=== PATIENT | female | born 2000 | race Caucasian/White ===

== ENCOUNTER 2021-08-13 09:48 | Emergency (ER) | payer OTHER, SELFPAY ==
--- NOTE | ~2021-08-13 | XR_ITS ---
EXAMINATION: XR finger 1st LT min 2V DATE: 08/13/2021 10:20 INDICATION: Left thumb injury. TECHNIQUE: 3 views of left thumb were obtained. COMPARISON: None. FINDINGS: Bone alignment is normal. No fracture. Joint spaces are well maintained. IMPRESSION: 1. No fracture. Reviewed, dictated and finalized at location B. IMPRESSION: 1. No fracture.
--- NOTE | 2021-08-13 09:57 | ED.UPPEXIN ---
HPI - Extremity Injury (Upper) General Chief Complaint: Extremity Injury, Upper Stated Complaint: Left Hand Injury Time Seen by Provider: 08/13/21 09:57 Source: patient Mode of arrival: ambulatory Limitations: no limitations History of Present Illness HPI narrative: Ms. Rivero is a 21-year-old female patient presenting to the clinic today with complaints of left thumb pain. She reports that she was kicked by a cow while milking on Friday. States that she is having pain with movement of the thumb joint. Related Data Home Medications Medication Instructions Recorded Confirmed bupropion HCl 150 mg PO QAM 08/13/21 08/13/21 buspirone 10 mg PO BID 08/13/21 08/13/21 lisdexamfetamine [Vyvanse] 50 mg PO DAILY 08/13/21 08/13/21 medroxyprogesterone 150 mg IM [id number] 08/13/21 08/13/21 Allergies Allergy/AdvReac Type Severity Reaction Status Date / Time No Known Allergies Allergy Mild Verified 08/13/21 10:08 Review of Systems Review of Systems: Pertinent positives per HPI. Patient denies any fever, chills, rash, headache, visual changes, dizziness, cough, runny nose, sore throat, shortness of breath, chest pain, palpitations, nausea, vomiting, diarrhea, constipation, abdominal pain, or any urinary issues. PMFSH Comments At the time of my signature, I reviewed and agree with the nursing past medical, surgical, social, and family history. There is no relevant family history pertinent to the patient complaint. Exam Narrative: General: Well-developed, well nourished, in no apparent distress Head: Normocephalic, atraumatic. Cardio: Regular rate and rhythm, s1 and s2 normal, no murmur appreciated. Resp: Clear to auscultation bilaterally, no rhonchi, rales, wheezing or rubs. Musculoskeletal: No deformity, tender to palpation over the saddle joint and the proximal left thumb, grossly normal range of motion, pain in the saddle joint and proximal thumb with flexion and extension of the left thumb against resistance, muscle strength strong and equal, peripheral pulse strong, no edema, no cyanosis, normal gait and station Course Course Emergency Course: Portions of this record may have been created with voice recognition software. Level of Care: Express Care Visit Vital Signs Vital signs: Vital Signs Temperature 36.7 C 08/13/21 10:02 Pulse Rate 86 08/13/21 10:02 Respiratory Rate 14 08/13/21 10:02 Blood Pressure 131/98 H 08/13/21 10:02 Pulse Oximetry 100 08/13/21 10:02 Temperature 36.7 C 08/13/21 10:09 Pulse Rate 86 08/13/21 10:09 Respiratory Rate 14 08/13/21 10:09 Blood Pressure 131/98 H 08/13/21 10:09 Pulse Oximetry 100 08/13/21 10:09 Vital signs reviewed MDM - Extremity Injury (Upper) MDM Narrative Medical decision making narrative: At the time of visit patient is resting comfortably on the exam table. Reporting that she got kicked by a cow on Friday and this injured her left thumb. X-ray was completed and is negative for any malalignment or fracture. Thumb spica splint applied. Supportive measures and discharge instructions explained to patient she voiced understanding. Differential Diagnosis Differential diagnosis: Likely finger sprain, dislocation of finger, fracture of hand and other Imaging Data Attestation: I personally reviewed and interpreted this imaging study as follows: My impression: Negative for any fracture or malalignment of the left thumb. Radiologist's impression: [facility] [address] [place], [place] [phone] XRay ReportSigned Patient: Divine RiveroB: 2000MR#: [id number]/Sex: 21 / FAcct:[id number]: EXPBETH ADM Date: 08/13/21Attending Dr: Ordering Physician: Jordan Ash APRN Date of Service: 08/13/21 Procedure(s): XR finger 1st LT min 2V Accession Number(s): [id number] cc: Jordan Ash APRN; Asmita, Zeinab Jackson MD~ EXAMINATION: XR finger 1st LT min 2V DATE: 08/13/2021 10:20 INDICATION: Le
[2021-08-13 10:02] VITALS: BP 131/98; PULSE 86; RESP 14; TEMP 36.7; O2SAT 100
[2021-08-13 10:09] VITALS: BP 131/98; PULSE 86; RESP 14; TEMP 36.7; O2SAT 100
== END 2021-08-13 11:03 | disposition home or self-care (01) ==
PROVIDERS: Emergency Provider Nurse Practitioner Family; PCP Pediatrics
DX: S63.622A Sprain of interphalangeal joint of left thumb, initial encounter (principal); W55.22XA Struck by cow, initial encounter; Y93.K2 Activity, milking an animal; F90.9 Attention-deficit hyperactivity disorder, unspecified type; F41.9 Anxiety disorder, unspecified; F32.A Depression, unspecified
CPT/HCPCS: 29125; 73140; 99213; G0463

== ENCOUNTER 2022-03-09 08:06 | Emergency (ER) | payer OTHER, SELFPAY ==
--- NOTE | 2022-03-09 08:09 | ED.URI ---
HPI - URI/Sore Throat General Chief Complaint: Upper Respiratory Infection Stated Complaint: chest hurts,hard to breath Time Seen by Provider: 03/09/22 08:13 Source: patient, RN notes reviewed and old records reviewed Mode of arrival: ambulatory Limitations: no limitations History of Present Illness HPI Narrative: 21-year-old female presents to the [facility] with complaints of shortness of breath and cough that has been going on for over 2 weeks. Denies fevers. Today at home COVID test which she reports as needed Denies any heart or lung issues. Has been taking Mucinex. reports when she coughs and Taylor she is having chest discomfort but no constant chest pain. Able to tolerate fluids by mouth: Yes Treatments prior to arrival: other ( Mucinex) Related Data Home Medications Medication Instructions Recorded Confirmed bupropion HCl 150 mg 24 hr tablet, 150 mg PO QAM 08/13/21 03/09/22 extended release buspirone 5 mg tablet 10 mg PO BID 08/13/21 03/09/22 lisdexamfetamine 50 mg capsule 50 mg PO DAILY 08/13/21 03/09/22 (Vyvanse) medroxyprogesterone 150 mg/mL 150 mg IM [id number] 08/13/21 03/09/22 intramuscular syringe Allergies Allergy/AdvReac Type Severity Reaction Status Date / Time No Known Allergies Allergy Mild Verified 03/09/22 08:17 Review of Systems Review of Systems: All systems reviewed & are unremarkable except as noted in HPI and below Constitutional: Constitutional: Reports no additional constitutional complaints, Denies chills and Denies fever(s) Eyes: Eyes: Reports no additional eye complaints ENT: Reports system reviewed and no additional complaints, except as documented Cardiovascular: Cardiovascular: Reports no additional cardiovascular complaints Respiratory: Respiratory: Reports as per HPI, Reports chest congestion, Reports cough, Reports dyspnea and Reports wheezing Gastrointestinal: Gastrointestinal: Reports no additional gastrointestinal complaints Musculoskeletal: Musculoskeletal: Reports no additional musculoskeletal complaints Integumentary/Breasts: Skin/Breast: Reports system reviewed and no additional complaints, except as docu Neurologic: Reports system reviewed and no additional complaints, except as documented Psychiatric: Psychiatric: Reports no additional psychiatric complaints Allergic/Immunologic: Allergic/Immunologic: Reports no additional allergic/immunologic complaints [facility] Past Medical History Medical History (Updated 03/09/22 @ 08:50 by Lizz Grimaldo APRN) Anxiety and depression Surgical History Surgical History (Updated 03/09/22 @ 08:50 by Lizz Grimaldo APRN) No pertinent past surgical history Social History Social History (Updated 03/09/22 @ 08:50 by Lizz Grimaldo APRN) Gender identity (if verbalized by the patient): Female Comments At the time of my signature, I reviewed and agree with the nursing past medical, surgical, social, and family history. There is no relevant family history pertinent to the patient complaint. Exam Const: General: comfortable, no acute distress, well developed, alert, ill appearing acutely ( mild) and well nourished Nutritional Appearance: well nourished Orientation/consciousness: patient oriented x3 Limitations: no limitations HENMT: Head: normal to inspection Ears: external ears normal, TM's normal bilaterally and EAC's normal Face/Nose/Sinus: Normal external nose present and Normal nares present Face and sinus: normal facial exam Mouth: Yes Normal oral and palatal mucosa present, Yes lip normal and Yes moist mucous membranes Throat: posterior oropharynx normal and uvula midline Eyes: General: appearance normal, both eyes and all related structures Conjunctivae: conjunctivae normal Pupils: Equal, round and reactive pupils present Neck: Neck: normal visual inspection, full ROM, no lymphadenopathy and no meningeal signs Chest: Chest palpation & inspection: normal inspection of the chest Resp:
[2022-03-09 08:13] VITALS: BP 121/86; PULSE 100; RESP 16; TEMP 36.6; O2SAT 100
== END 2022-03-09 08:27 | disposition home or self-care (01) ==
PROVIDERS: Emergency Provider Nurse Practitioner; PCP Pediatrics
DX: J40 Bronchitis, not specified as acute or chronic (principal); F41.9 Anxiety disorder, unspecified; F32.A Depression, unspecified
CPT/HCPCS: 99213; G0463

== ENCOUNTER 2024-08-29 13:29 | Emergency (ER) | payer OTHER, SELFPAY ==
--- NOTE | ~2024-08-29 | XR_ITS ---
EXAM: XR hip LT min 2V DATE: 08/29/2024 14:05 HISTORY: pain x 1 month/no known trauma . COMPARISON: None available. FINDINGS: Normal mineralization. No acute fracture or dislocation. Irregularity and osteophytosis at the pubic symphysis, with sclerotic ossific fragments. Partial visualization of the ischial apophysi s, at an older age than expected in a female patient No lytic or blastic lesion. Joint spaces are vadim ntained. No erosion or periosteal change. Soft tissues within normal limits. IMPRESSION: No acute fracture or dislocation in the left hip. Degenerative change/old trauma at the pubic symphysis. Persistent visualization of the ischial tuberosity apophysis, may represent normal bone development f or this patient, but also consider mild apophysitis/injury. Correlate for ischial tuberosity tenderne ss and/or hamstring or adductor-related symptoms. Reviewed, dictated and finalized at location K. IMPRESSION: No acute fracture or dislocation in the left hip. Degenerative change/old trauma at the pubic symphysis. Persistent visualization of the ischial tuberosity apophysis, may represent nor mal bone development for this patient, but also consider mild apophysitis/injur y. Correlate for ischial tuberosity tenderness and/or hamstring or adductor-rel ated symptoms.
--- NOTE | ~2024-08-29 | XR_ITS ---
EXAM: XR knee LT min 4V DATE: 08/29/2024 14:05 HISTORY: pain x 1 month/no known trauma . COMPARISON: None available. FINDINGS: Normal mineralization. No fracture or dislocation. No lytic or blastic lesion. Joint space s are maintained. No erosion or periosteal change. Soft tissues within normal limits. IMPRESSION: No acute osseous finding in the left knee. Reviewed, dictated and finalized at location K.
--- OUTSIDE RECORDS SUMMARY | 2024-08-29 13:30 | XMS_ITS | Referral Summary ---
Author Organization [facility] Medical Office Building B Address [address] [place] [address] Care Team Providers Care Metallurgical Engineering Technician Name Role Phone Meme Pinedo MD Primary Care Provider [phone]- [phone] Encounters Date Type Department Care Team Description 06/21/2024 4:45 PM SHAGGER Office Visit [facility] [place] [address] [place] [address] Teena Vincent MD Viral URI with cough (Primary Dx); Acute non-recurrent frontal sinusitis from Last 3 Months Allergies Active Allergy Reactions Criticality Noted Date Comments Lactase Diarrhea,Nausea And Vomiting High 03/01/2014 Tested positive allergy testing Peanut Swelling High 03/01/2014 Tongue tingles and throat itches, slight swelling, tested positive allergy testing Medications medroxyprogeste natasha acetate (DEPO-PROVERA IM) Inject into the muscle as instructed 8 Active buPROPion XL (WELLBUTRIN XL) 150 mg 24 hr tablet 1 Active busPIRone (BUSPAR) 10 mg tablet Take 1 tablet (10 mg total) by mouth 2 (two) times a day 2 Active EPINEPHrine 0.3 mg/0.3 mL auto-injection syringe Inject 0.3 mL (0.3 mg total) into the muscle as instructed daily as needed 4 Active Vyvanse 50 mg capsule Take by mouth daily 3 Active triamcinolone (KENALOG) 0.1 % cream APPLY TO AREAS OF RASH WHEN PRESENT BID 7 Active traZODone (DESYREL) 150 mg tablet Take 1 tablet (150 mg total) by mouth nightly at bedtime. 4 Active cyclobenzaprine (FLEXERIL) 10 mg tabletIndicatio ns:Acute pain of right shoulder Take 1 tablet (10 mg total) by mouth 3 (three) times a day as needed for muscle spasms 30 tablet 4 Active naproxen (NAPROSYN) 500 mg tablet Take 1 tablet (500 mg total) by mouth 2 (two) times a day with meals 30 tablet 4 Active Additional Information Patient not taking.Reported on 06/21/2024 ARIPiprazole (ABILIFY) 5 mg tablet daily 4 Active predniSONE (DELTASONE) 20 mg tablet Take 2 tablets (40 mg) by mouth daily 6 tablet 5 Active Active Problems No known active problems Social History Tobacco Use Types Packs/Day Years Used Date Smoking Tobacco: Some Days Vaping Tobacco Cessation:Ready to Q uit: No; Counseling Given: Not Answered Personal Safety Answer Date Recorded Have you ever been in or are you currently in a harmful physical or emotional relationship or is someone making you feel afraid or unsafe? Denies 10/14/2023 Comments No Sex and Gender Information Value Date Recorded Sex Assigned at Not on file Legal Sex Female 7:36 PM SHAGGER Gender Identity Not on file Sexual Orientation Not on file Last Filed Vital Signs Vital Sign Reading Time Taken Comments Blood Pressure 100/62 06/21/2024 4:31 PM SHAGGER Pulse 84 06/21/2024 4:31 PM SHAGGER Temperature 36.9 C (98.4 F) 06/21/2024 4:31 PM SHAGGER Respiratory Rate 16 06/21/2024 4:31 PM SHAGGER Oxygen Saturation 98% 06/21/2024 4:31 PM SHAGGER Inhaled Oxygen Concentration - - Weight 68.5 kg (151 lb) 06/21/2024 4:31 PM SHAGGER Height 160 cm (5' 3 ) 06/21/2024 4:31 PM SHAGGER Body Mass Index 26.75 06/21/2024 4:31 PM SHAGGER Plan of Treatment Not on file Procedures Procedure Name Priority Date/Time Associated Diagnosis Comments POC INFLUENZA A/B, COVID-19 ANTIGEN Routine 06/21/2024 4:52 PM SHAGGER Viral URI with cough from Last 3 Months Results * POC Influenza A/B, COVID-19 antigen (06/21/2024 4:52 PM SHAGGER) Influenza A Ag, POC Negative Negative [facility] Influenza B Ag, POC Negative Negative [facility] COVID-19 Ag POC Presumptive Negative Presumptive Negative, Invalid [facility] Nasal 06/21/2024 4:52 PM SHAGGER us Teena Vincent MD POINT OF CARE TEST NORA GURROLA Final Result [facility] [address] [place] [address], [facility] from Last 3 Months Insurance [facility] Care Teams Metallurgical Engineering Technician Relationship Specialty Start Date End Date Meme Pinedo MD PCP - General Family Medicine 08/04/23
--- OUTSIDE RECORDS SUMMARY | 2024-08-29 13:30 | XMS_ITS | Encounter Summary ---
Author Organization [facility] Address [address] [place] [address] Phone Care Team Providers Care Haunted History Tour Guide Name Role Phone Meme Pinedo MD Primary Care Provider [phone] [phone] Bindu Del Rosario APRN, [facility] Unavailable [phone]- [phone] Encounter Details Date Type Department Care Team (Late st Contact Info) Description 09/26/2023 Behavioral [facility] [address] [place] [address] Whit Marie, CLIP RIVETER [address] [place] [address] Social History Tobacco Use Types Packs/Day Years Used Date Smoking Tobacco: Never Smokeless Tobacco: Never Alcohol Use Standard Drinks/Week Comments No 0 (1 standard drink = 0.6 oz pur e alcohol) PHQ-2 Answer Date Recorded Total Score - Questions 1-9 0 08/27 Education Answer Date Recorded What is the highest level of school you have completed or the highest degree you have received? Some college, no degree 09/18/2022 Sexually Active Control Partners Comments Yes Male Comments Unknown Sex and Gender Information Value Date Recorded Sex Assigned at Not on file Legal Sex Female 12:25 AM CDT Gender Identity Not on file Sexual Orientation Not on file documented as of this encounter Plan of Treatment Not on file documented as of this encounter Goals Goal Patient Goal Type Associated Problems Recent Progress Patient-Stated? Author to be happy Behavioral Health Improving( 9:14 AM CDT) Yes Whit Marie LCSW Note: Goal/Objective: Increase ability to handle stressors. Anticipated Time Frame for Goal Completion: 8 months Goal Reviewed with: patient today Readiness to change: Thinking about making a change Department associated with goal: [facility] Steps to achieve goal: will attend counseling/psychotherapy sessions at least once monthly, at least 6 sessions, utilizing individual and/or group sessions to express thoughts and feelings. to identify, verbalize and process at least three contributing factors/triggers to anxiety and depression. to identify and verbalize at least three actions/skills to prevent and/or cope with anxiety and depression. to put into action, at least one time weekly, for one month, an action/skill to prevent and or cope with anxiety and depression. documented as of this encounter Visit Diagnoses Not on filedocumented in this encounter Additional Health Concerns Assessment Noted Time PHQ-9 Depression Total Score: 0 09/19/19 23 1:00 PM CDT documented as of this encounter Care Teams Haunted History Tour Guide Relationship Specialty Start Date End Date Meme Pinedo MD [address] [place] [address] PCP - General Family Medicine 09/18/22 10/13/23 Bindu Del Rosario APRN, [employer] [address] [place] [address] Nurse Practitioner Advanced Practice Nurse 05/02/22 documented as of this encounter
--- OUTSIDE RECORDS SUMMARY | 2024-08-29 13:30 | XMS_ITS | Clinical Summary ---
Author Organization [facility] Medical Office Building B Address [address] [place] [address] Care Team Providers Care Script Editor Name Role Phone Meme Pinedo MD Primary Care Provider [phone]- [phone] Allergies Active Allergy Reactions Criticality Noted Date [...] Active Active Problems No known active problems Encounters Date Type Department Care Team Description 06/21/2024 4:45 PM ALARM INSTALLATION TECHNICIAN Office Visit [facility] Medical [facility] [place] [address] [place] [address] Teena Vincent MD Viral URI with cough (Primary Dx); Acute non-recurrent frontal sinusitis from Last 3 Months Medical History Medical History Date Comments Anxiety Brain concussion Depression Family History Medical History Relation Name Comments Alcohol abuse Paternal Grandmother Ciarra Relation Name Status Comments Paternal Grandmother Ciarra Social History Tobacco Use Types Packs/Day Years [...] on file Legal Sex Female 7:36 PM ALARM INSTALLATION TECHNICIAN Gender Identity Not on file Sexual Orientation Not on file Obstetrics History Last Filed Vital Signs Vital Sign Reading Time Taken Comments Blood Pressure 100/62 06/21/2024 4:31 PM ALARM INSTALLATION TECHNICIAN Pulse 84 06/21/2024 4:31 PM ALARM INSTALLATION TECHNICIAN Temperature 36.9 C (98.4 F) 06/21/2024 4:31 PM ALARM INSTALLATION TECHNICIAN Respiratory Rate 16 06/21/2024 4:31 PM ALARM INSTALLATION TECHNICIAN Oxygen Saturation 98% 06/21/2024 4:31 PM ALARM INSTALLATION TECHNICIAN Inhaled Oxygen Concentration - - Weight 68.5 kg (151 lb) 06/21/2024 4:31 PM ALARM INSTALLATION TECHNICIAN Height 160 cm (5' 3 ) 06/21/2024 4:31 PM ALARM INSTALLATION TECHNICIAN Body Mass Index 26.75 06/21/2024 4:31 PM ALARM INSTALLATION TECHNICIAN Plan of Treatment Health Maintenance Due Date Last Done Comments Cervical Cancer Screening 2001 Chlamydia and Gonorrhea (GC/ CT) Screening 2001 Depression Screening 2001 Hepatitis C Screening 2001 Pneumococcal vaccine <65 (1 of 1 - PPSV23) 2007 11/08/2002, 2001 Regular Well Visit/Exam 18-64 2019 DTaP/Tdap/Td Vaccine (7 - Td or Tdap) 12/31/2022 12/31/2012, 12/12/2006, 12/10/2004, Additional history exists Covid-19 Vaccine (2023-2 5 season) 2023 03/02/2021, 07/03/2020 Influenza Vaccine (Season Ended) 2024 02/12/2022, 02/27/2021, 02/09/2020, Additional history exists Hepatitis B Screening Completed 11/08/2002 , 08/24/2002, 2001, Additional history exists Varicella Vaccines Completed 12/12/2006, 08/24/2002 HPV Vaccines Completed 09/09/2017, 12/27, 01/12/2016 Meningococcal B Vaccine Completed 03/01/2022, 02/08 Procedures Procedure Name Priority Date/Time Associated Diagnosis Comments POC INFLUENZA A/B, COVID-19 ANTIGEN Routine 06/21/2024 4:52 PM ALARM INSTALLATION TECHNICIAN Viral URI with cough from Last 3 Months Results * POC Influenza A/B, COVID-19 antigen (06/21/2024 4:52 PM ALARM INSTALLATION TECHNICIAN) Influenza A Ag, POC Negative Negative [facility] Influenza B Ag, POC Negative Negative [facility] COVID-19 Ag POC Presumptive Negative Presumptive Negative, Invalid [facility] Nasal 06/21/2024 4:52 PM ALARM INSTALLATION TECHNICIAN us Teena Vincent MD POINT OF CARE TEST ORDEusebio GURROLA Final Result [facility] [address] [place] [address], [facility] from Last 3 Months Insurance [facility] Care Teams Script Editor Relationship Specialty Start Date End Date Meme Pinedo MD PCP - General Family Medicine 08/04/23
--- OUTSIDE RECORDS SUMMARY | 2024-08-29 13:30 | XMS_ITS | Encounter Summary ---
Author Organization [facility] Address [address] [place] [address] Phone Care Team Providers Care Security Orderly Name Role Phone Meme Pinedo MD Primary Care Provider [phone] [phone] Bindu Del Rosario APRN, [facility] Unavailable [phone]- [phone] Encounter Details Date Type Department Care Team (Late st Contact Info) Description 07/18/2023 Behavioral Health [facility] [address] [place] [address] Whit Marie, EMERGENCY MEDICINE [address] [place] [address] Social History Tobacco Use Types Packs/Day Years [...] making a change Department associated with goal: [facility] Steps to achieve goal: [...] documented as of this encounter Care Teams Security Orderly Relationship Specialty Start Date End Date Meme Pinedo MD [address] [place] [address] PCP - General Family Medicine 09/18/22 10/13/23 Bindu Del Rosario APRN, SASH FINISHER [address] [place] [address] Nurse Practitioner Advanced Practice Nurse 05/02/22 documented as of this encounter
--- OUTSIDE RECORDS SUMMARY | 2024-08-29 13:30 | XMS_ITS | Encounter Summary ---
Author Organization [facility] Address [address] [place] [address] Phone Care Team Providers Care Manager Safe Name Role Phone Meme Pinedo MD Primary Care Provider [phone] [phone] Bindu Del Rosario APRN, [employer] [place] Unavailable [phone]- [phone] Encounter Details Date Type Department Care Team (Late st Contact Info) Description 02/27/2023 Behavioral Health Patient Survey [facility] Services [address] [place] [address] Whit Marie, ELECTRIC POWER LINE EXAMINER [address] [place] [address] Social History Tobacco Use Types Packs/Day Years [...] on file Sexual Orientation Not on file COVID-19 Exposure Response Date Recorded In the last 10 days, have yo u been in contact with someone who was confirmed or suspected to have Coronavirus/COVID-19? No / Unsure 02/27/2023 1:12 PM CDT documented as of this encounter Plan of [...] making a change Department associated with goal: [facility] Steps to [...] documented as of this encounter Care Teams Manager Safe Relationship Specialty Start Date End Date Meme Pinedo MD [address] [place] [address] PCP - General Family Medicine 09/18/22 10/13/23 Bindu Del Rosario APRN, TAILER [place] [address] [place] [address] Nurse Practitioner Advanced Practice Nurse 05/02/22 documented as of this encounter
--- OUTSIDE RECORDS SUMMARY | 2024-08-29 13:30 | XMS_ITS ---
Author Organization Unknown Medications Medication Instructions Effective Dates (start - stop) Status buspirone hydrochloride 10 M G Oral Tablet - Completed naproxen 500 MG Oral Tablet [id number] :00:00Z - Completed buspirone hydrochloride 10 M G Oral Tablet - Completed buspirone hydrochloride 10 M G Oral Tablet - Completed lisdexamfetamine dimesylate 50 MG Oral Capsule [Vyvanse] - Completed {21 (methylprednisolone 4 MG Oral Tablet) } Pack - Completed naproxen 500 MG Oral Tablet [id number] :00:00Z - Completed - - Compl eted trazodone hydrochloride 150 MG Oral Tablet - Completed {21 (methylprednisolone 4 MG Oral Tablet) } Pack - Completed trazodone hydrochloride 50 M G Oral Tablet - Completed - - Compl eted aripiprazole 5 MG Oral Tablet 2023-08-26 00:00:00Z - Completed 24 HR bupropion hydrochlorid e 300 MG Extended Release Oral Tablet - Compl eted - - Compl eted lisdexamfetamine dimesylate 50 MG Oral Capsule [Vyvanse] - Completed lisdexamfetamine dimesylate 50 MG Oral Capsule [Vyvanse] - Completed lisdexamfetamine dimesylate 50 MG Oral Capsule [Vyvanse] - Completed trazodone hydrochloride 150 MG Oral Tablet - Completed cyclobenzaprine hydrochlorid e 10 MG Oral Tablet - Completed naproxen 500 MG Oral Tablet [id number] :00:00Z - Completed lisdexamfetamine dimesylate 50 MG Oral Capsule [Vyvanse] - Completed buspirone hydrochloride 10 M G Oral Tablet - Completed trazodone hydrochloride 150 MG Oral Tablet - Completed trazodone hydrochloride 150 MG Oral Tablet - Completed lisdexamfetamine dimesylate 50 MG Oral Capsule [Vyvanse] - Completed lisdexamfetamine dimesylate 50 MG Oral Capsule [Vyvanse] - Completed 24 HR bupropion hydrochlorid e 300 MG Extended Release Oral Tablet - Compl eted sucralfate 1000 MG Oral Tablet 2022-11-26:00:00Z - Completed lisdexamfetamine dimesylate 50 MG Oral Capsule [Vyvanse] - Completed trazodone hydrochloride 150 MG Oral Tablet - Completed Patient Care team information Name Category Status Period Participants - - Proposed period not known -
--- OUTSIDE RECORDS SUMMARY | 2024-08-29 13:30 | XMS_ITS | Clinical Summary ---
Author Organization [facility] Address [address] [place] [address] Phone Care Team Providers Care Channel Marketing Coordinator Name Role Phone Bindu Del Rosario Ashley AGUILARN, BUSINESS DEVELOPMENT ASSISTANT Unavailable [phone] Allergies Active Allergy Reactions Criticality Noted Date Comments Lactase Diarrhea,Vomiting High 03/01/2014 Tested positive allergy testing Tested positive allergy testing Peanut Allergen Powder-Dnfp Anaphylaxis High 05/29/2022 Medications MedroxyPROGESTERo ne Acetate (DEPO-PROVERA IM) by Intramuscular route. Active EPINEPHrine (EPIPEN) 0.3 MG/0.3ML Solution Prefilled Syringe by Intramuscular route once. Active busPIRone (BUSPAR) 10 MG Tablet Take 1 Tablet by mouth 2 times daily. 180 Tablet 10/17/19 Active Additional Information Patient taking differently:10 mg Oral3 TIMES DAILY, 10mg in the am; 20mg in the pm, Reported on 11/25/2022 buPROPion (WELLBUTRIN) 150 MG XL tablet Take 1 Tablet by mouth every morning. 90 Tablet 1 10/17/19 23 Active Additional Information Patient taking differently: 300 mgOral EVERY MORNING, Reported on 11/25/2022 pantoprazole (PROTONIX) 40 MG Tablet Delayed Response Take 1 Tablet by mouth in the morning and at bedtime. 30 Tablet 11/29/19 Active Vyvanse 50 MG CapsuleIndication s:Attention deficit hyperactivity disorder (ADHD), unspecified ADHD type Take 1 Capsule by mouth daily. 30 Capsule 12/27/19 Active Active Problems Problem Noted Date Diagnosed Date Mood disorder 07/31/2023 BMI 31.0-31.9,adult 10/16/2022 Panic disorder without agoraphobia 03/10/2017 Attention deficit hyperactiv ity disorder (ADHD), inattentive type, moderate 03/10/2017 Immunizations Immunization Administration Dates Next Due DTAP VACCINE 12/12/2006, 3,08/24/2002,09/11 DTAP VACCINE, UNSPECIFIED FORMULATION 12/10/2004 HEP B/HIB Combined Vaccine 11/08/2002,08/24/2002 ,2001 Hepatitis A Vaccine 12/31/2012 Hepatitis A, Pediatric, Unsp ecified Formulation 12/12/2006 Hepatitis B Vaccine, Pediatric/adolescent 2001 Human Papillomavirus (HPV) 9 -valent Vaccine 09/09/2017,01/14/2017,01/12/2016 Inactivated Polio Vaccine 12/12/2006,11/08/2002, 08/24/2002 Influenza Vaccine Quadrivalent Nasal 02/15/2014, 12/31/2012 Influenza Vaccine, Quadrivalent, PF 01/26,02/27/2021,02/09/2020,03/11,01/14/2017 Influenza, Injectable, Quadrivalent 01/12/2016 MMR Vaccine 12/12/2006,08/24/2002 Meningococcal Group B OMV 03/01/2022,02/09/2020 Meningococcal MCV4O 09/09/2017,12/31/2012 OPV 2001 Pneumococcal Vaccine Peds - 7 Valent 11/08/2002, 2001 TDAP Vaccine 12/31/2012 Varicella Vaccine Live 12/12/2006,08/24/2002 Family History Medical History Relation Name Comments No Known Problems Brother 1 Cory Depression Brother 2 Joaquin ADD / ADHD Father Breezy Drug Abuse Father Breezy ADD / ADHD Mother Kathia Bipolar Disorder Mother Kathia Relation Name Status Comments Brother 1 Cory Alive Brother 2 Joaquin Alive Father Breezy Alive Mother Kathia Alive Social History Tobacco Use Types Packs/Day Years Used Date Smoking Tobacco: Never Smokeless Tobacco: Never Tobacco Cessation:Counseling Given: Yes Alcohol Use Standard Drinks/Week Comments No 0 [...] Sign Reading Time Taken Comments Blood Pressure 110/64 11/25/2022 3:04 PM CDT Pulse 88 11/25/2022 3:04 PM CDT Temperature 36.3 C (97.3 F) 11/25/2022 3:04 PM CDT Respiratory Rate 14 11/25/2022 3:04 PM CDT Oxygen Saturation 98% 11/25/2022 3:04 PM CDT Inhaled Oxygen Concentration - - Weight 80.1 kg (176 lb 9.6 oz) 11/25/2022 3:04 P M CDT Height 160 cm (5' 3 ) 11/25/2022 3:04 PM CDT Body Mass Index 31.28 11/25/2022 3:04 PM CDT Plan of Treatment Health Maintenance Due Date Last Done Comments Hepatitis C Virus (HCV) Screening 2001 Pap Smear 2022 DTaP/Tdap/Td Immunization (7 - Td or Tdap) 12/31/2022 12/31/2012, 12/12/2006, 12/10/2004, Additional history exists Influenza Immunization (#1) 12/28/202301/26, 02/27/2021, 02/09/2020, Additional history exists SARS-COV-2 Immunization ( season) 2023 03/02/2021, 07/03/2020 Respiratory Syncytial Virus (RSV) Immunization (Adult) (1 - 1-dose 75+ series) 2076 Hepatitis B Immunization Completed 003, 08/24/2002, 2001, Additional history exists Pneumococcal Immunization Combined Aged Out 11/08/2002, 2001 No longer eligibl e based on patient's age to complete this topic Measles Mumps Rubella (MMR) Immunization Discontinued 12/12/2006, 08/24/2002 Polio (IPV) Immunization Discontinued 007, 11/08/2002, 08/24/2002, Additional history exists Varicella Immunization Discontinued 12/12/2006, 2002 Hepatitis A Immunization Discontinued 12/31/2012, 11/26 Human Papillomavirus (HPV) Immunization Completed 09/09/2017, 01/14/2017, 01/12/2016 Meningococcal Immunization (ACWY) Completed 09/09/2017, 12/31/2012 Meningococcal B Immunization Completed 03/01/2022, 02/09/2020 Rotavirus Immunization Aged Out No lo nger eligible based on patient's age to complete this topic Goals Goal Patient Goal Type Associated Problems Recent Progress Patient-Stated? Author to be happy Behavioral Health Improving( 9:14 AM CDT) Yes Whit Marie, SALES CORRESPONDENT Note: Goal/Objective: Increase ability to handle stressors. Anticipated Time Frame for Goal Completion: 8 months Goal Reviewed with: patient today Readiness to change: Thinking about making a change Department associated with goal: [facility] Steps to [...] and or cope with anxiety and depression. Insurance [facility] O[facility] Care Teams Channel Marketing Coordinator Relationship Specialty Start Date End Date Bindu Del Rosario, SOLAR TECH, BUSINESS DEVELOPMENT ASSISTANT #[address] [facility] Nurse Practitioner Advanced Practice Nurse 05/02/22
--- OUTSIDE RECORDS SUMMARY | 2024-08-29 13:30 | XMS_ITS | Encounter Summary ---
Author Organization [facility] Address [address] [place] [address] Care Team Providers Care Seal Delivery Vehicle Officer Name Role Phone Zeinab Tian MD Primary Care Provider [phone] Mimi Palomo MD Primary Care Provider [phone] Reason for Visit * Reason Onset Date Comments MEDICATION REFILL 06/24/2017 Encounter Details Date Type Department Care Team (Late st Contact Info) Description 06/24/2017 Refill [facility] Pediatrics - [address] [address] Nae Arteaga MD [address] [place] [id number] MEDICATION REFILL Social History Tobacco Use Types Packs/Day Years Used Date Smoking Tobacco: Never Alcohol Use Standard Drinks/Week Comments No 0 (1 standard drink = 0.6 oz pur e alcohol) Comments No Sex and Gender Information Value Date Recorded Sex Assigned at Not on file Legal Sex Female 5:41 AM EIGHT ARM OPERATOR Gender Identity Not on file Sexual Orientation Not on file documented as of this encounter Functional Status * Is person deaf or have serious hearing difficulty? Answer Date of Assessment Author No 12/03/2016 10:00 AM Vikas Gutierrez RN * Is person blind or have serious difficulty seeing? Answer Date of Assessment Author No 12/03/2016 10:00 AM Vikas Gutierrez RN * Does person have serious difficulty walking/climbing stairs? Answer Date of Assessment Author No 12/03/2016 10:00 AM Vikas Gutierrez RN * Does person have difficulty dressing/bathing? Answer Date of Assessment Author No 12/03/2016 10:00 AM Vikas Gutierrez RN * Does person have difficulty doing errands alone? Answer Date of Assessment Author Yes 12/03/2016 10:00 AM Vikas Gutierrez RN documented as of this encounter Mental Status * Does person have difficulty concentrating/remembering/making decisions? Answer Entry Date Author No 12/03/2016 10:00 AM Vikas Gutierrez RN documented in this encounter Miscellaneous Notes * Telephone Encounter - Saima Tang RN - 06/25/2017 8:12 AM EIGHT ARM OPERATOR Received refill request for protonix, last seen in November 2016 at the time of endoscopy. Will forward to Dr Arteaga. T ARM OPERATOR * Telephone Encounter - Caryl Marte - 06/24/2017 3:25 PM CST Received refill request from Christ T ARM OPERATOR documented in this encounter Plan of Treatment Not on file documented as of this encounter Visit Diagnoses Diagnosis Eosinophilic esophagitis documented in this encounter Care Teams Seal Delivery Vehicle Officer Relationship Specialty Start Date End Date Zeinab Tian MD [address] [place] [phone] PCP - General Pediatrics 01/26/13 08/19/17 Mimi Palomo MD [address] [place] [address] PCP - General 08/20/17 documented as of this encounter
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
--- OUTSIDE RECORDS SUMMARY | 2024-08-29 13:31 | XMS_ITS | Encounter Summary ---
Author Organization [facility] Address [address] [place] [address] Phone Care Team Providers Care Clinical Technician Name Role Phone Meme Pinedo MD Primary Care Provider [phone] Bindu Del Rosario APRN, [facility] Unavailable [phone] Encounter Details Date Type Department Care Team (Late st Contact Info) Description 08/21/2023 Behavioral Health [facility] [address] [place] [address] Whit Marie, SALESPERSON [employer] [address] [place] [address] Social History Tobacco Use Types Packs/Day Years [...] making a change Department associated with goal: [facility] Steps to achieve goal: [...] documented as of this encounter Care Teams Clinical Technician Relationship Specialty Start Date End Date Meme Pinedo MD [address] [place] [address] PCP - General Family Medicine 09/18/22 10/13/23 Bindu Del Rosario APRN, CUSTOMS GUARD [address] [place] [address] Nurse Practitioner Advanced Practice Nurse 05/02/22 documented as of this encounter
--- NOTE | 2024-08-29 13:32 | ED_ITS ---
HPI - General Adult General Chief complaint: Extremity Problem,Nontraumatic Stated complaint: Lt Leg Pain Time Seen by Provider: 08/29/24 13:32 Source: patient Mode of arrival: ambulatory Limitations: no limitations History of Present Illness HPI narrative: 24-year-old female patient presents to the [facility] with complaints of left thigh pain for the last month. Patient denies any specific injury that she is aware of. Patient states that the pain is getting worse for the last week. Patient has been taking ibuprofen for the pain. Patient states she continues to ambulate but has been getting more difficult. Related Data Home Medications ?Medication ?Instructions ?Recorded ?Confirmed ?Last Taken ?Type bupropion HCl 150 mg 24 hr tablet, 150 mg PO QAM 08/13/21 08/29/24 Unknown History extended release buspirone 5 mg tablet 10 mg PO BID 08/13/21 08/29/24 Unknown History lisdexamfetamine 50 mg capsule 50 mg PO DAILY 08/13/21 08/29/24 Unknown History (Vyvanse) trazodone 150 mg tablet mg 08/29/24 Unknown History Allergies Allergy/AdvReac Type Severity Reaction Status Date / Time No Known Allergies Allergy Mild Verified 08/29/24 13:31 Review of Systems Review of Systems: CONSTITUTIONAL: Denies fever, chills, or sweats. EYES: Denies visual changes, redness, or discharge. ENT: Denies rhinorrhea, congestion, sore throat, or otalgia. CARDIOVASCULAR: Denies chest pain, palpitations, or edema. RESPIRATORY: Denies cough or dyspnea. GASTROINTESTINAL: Denies abdominal pain, nausea, vomiting, or diarrhea. GENITOURINARY: Denies dysuria or hematuria. SKIN: Denies rash or itching. MUSCULOSKELETAL: Denies back pain, joint pain, or myalgia. Positive left thigh pain x1 month NEUROLOGIC: Denies headache, numbness, or weakness. PSYCHIATRIC: Denies anxiety or depression. [facility] Past Medical History Medical History Anxiety and depression Surgical History Surgical History No pertinent past surgical history Social History Social History Gender identity (if verbalized by the patient): Female Comments At the time of my signature I agree with nursing past medical history, surgical, social, and family history. There is no relevant family history pertinent to the presenting complaint. Exam Narrative: GENERAL: Well-appearing, well-nourished, and in no acute distress. HEAD: Normocephalic, atraumatic. EYES: PERRLA and EOMI. ENT: Nares clear, no rhinorrhea or epistaxis. Mucous membranes moist. NECK: Supple. No lymphadenopathy CHEST: Clear to auscultation. No respiratory distress. HEART: Regular rate and rhythm. No murmur heard. Normal peripheral pulses. ABDOMEN: Soft, nontender, nondistended, normal active bowel sounds. EXTREMITIES: Patient is able to bear weight and ambulate with pain. No surface trauma, STS, or obvious effusion. No overlying erythema or warmth. The L knee is without obvious asymmetry or deformity when compared to the R knee. Patient is able to do deep knee bend with symmetry, fully extend knee but complains of pain to the thigh area, normal internal and external rotation. No tenderness to palpation of the patella, no effusion or ballottement. No tenderness over the infrapatellar tendon. tenderness over the PCL and LCL. no tenderness over the proximal fibular head. no tenderness, fullness, or mass of the popliteal fossa. No quadriceps tenderness. No laxity of the ACL, PCL, MCL, or LCL. No collateral ligament laxity to valgus or vargus stress. Negative edward/drawer sign. Negative [place]. Negative Apley compression and/or distraction. Distal motor and neurovascular status intact. Patient is able to ambulate to treatment area without difficulty or assistance, pain, slight limp noted. No surface trauma, ecchymosis. no erythema, warmth. No deformity or crepitus or obvious asymmetry of the affected leg compared to the other. No tenderness to palpation over symphysis pubis, ischial bone,iliac crest, trochanter, SI notch, buttocks, quadriceps, femoral triangle, inguinal ligament. No inguinal lymphadenopathy. ROM unlimited and without pain. Normal flexion to chest, extension, abduction and adduction. Distal motor and neurovascular status are intact. SKIN: Warm, dry, no rash. NEURO: No focal deficits. Alert and oriented x3. Course Course Level of Care: Express Care Visit Vital Signs Vital signs: Vital Signs Temperature 36.6 C 08/29/24 13:36 Pulse Rate 85 08/29/24 13:36 Respiratory Rate 18 08/29/24 13:36 Blood Pressure 117/72 08/29/24 13:36 Pulse Oximetry 100 08/29/24 13:36 Oxygen Delivery Room Air 08/29/24 13:36 Temperature 36.6 C 08/29/24 13:36 Pulse Rate 85 08/29/24 13:36 Respiratory Rate 18 08/29/24 13:36 Blood Pressure 117/72 08/29/24 13:36 Pulse Oximetry 100 08/29/24 13:36 Oxygen Delivery Room Air 08/29/24 13:36 Vital signs reviewed. Medical Decision Making MDM Narrative Medical decision making narrative: discussed with patient that we can go ahead and do an x-ray of the left hip and left knee to ensure that there is no issues with the bone however this is most likely muscular or could be related to any tendon or ligaments. Discussed with her that most likely she will need to follow-up with her primary care provider and be referred for physical therapy and further evaluation. Patient verbalized understanding of this denies any other questions or concerns at this time. Differential Diagnosis Differential Diagnosis: Differential diagnosis: Knee contusion, sprain, ligament injury, patellar dis location, joint dislocation, patella or tibial plateau fracture, Tellez's cyst, DVT, meniscus tear, PCL tear, prepatellar bursitis, septic joint, gout, tumor. Children: Oiya-Ryjlu-Qrwiquf or [place]-Schlatter disease. Posterior hip pain, joint dysfunction, lumbar radiculopathy, impingement, fracture, hip dislocation, osteoarthritis, bursitis. Vital Signs Vital Signs: Vital Signs Temperature 36.6 C 08/29/24 13:36 Pulse Rate 08/29/24 13:36 Respiratory Rate 18 08/29/24 13:36 Blood Pressure 117/72 08/29/24 13:36 Pulse Oximetry 08/29/24 13:36 Oxygen Delivery Room Air 08/29/24 13:36 Temperature 36.6 C 08/29/24 13:36 Pulse Rate 85 08/29/24 13:36 Respiratory Rate 18 08/29/24 13:36 Blood Pressure 117/72 08/29/24 13:36 Pulse Oximetry 08/29/24 13:36 Oxygen Delivery Room Air 08/29/24 13:36 Imaging Data Radiologist's impression: [facility] [address] [place] [address] XRay Report Signed Patient: Cheo Rivero : 2000 MR#: [id number] Age: 24 Acct:[id number] Loc: [facility] ADM Date: 08/29/24Attending Dr: Ordering Physician: Ana Tinoco APRN Date of Service: 08/29/24 Procedure(s): XR hip LT min 2V Accession Number(s): [id number] cc: TELEPHONE INFORMATION SUPERVISOR PHYSICIAN; Ana Tinoco HISTORY TUTOR~ EXAM: XR hip LT min 2V DATE: 08/29/2024 14:05 HISTORY: pain x 1 month/no known trauma . COMPARISON: None available. FINDINGS: Normal mineralization. No acute fracture or dislocation. Irregularity and osteophytosis at the pubic symphysis, with sclerotic ossific fragments. Partial visualization of the ischial apophysis, at an older age than expected in a female patient No lytic or blastic lesion. Joint spaces are maintained. No erosion or periosteal change. Soft tissues within normal limits. IMPRESSION: No acute fracture or dislocation in the left hip. Degenerative change/old trauma at the pubic symphysis. Persistent visualization of the ischial tuberosity apophysis, may represent normal bone development for this patient, but also consider mild apophysitis/injury. Correlate for ischial tuberosity tenderness and/or hamstring or adductor-related symptoms. Reviewed, dictated and finalized at location [facility]. [facility] [address] [place] [id number] XRay Report Signed Patient: Cheo Rivero : 2000 MR#: [id number] Age: 24 Acct:[id number] Loc: [facility] ADM Date: 08/29/24Attending Dr: Ordering Physician: Ana Tinoco APRN Date of Service: 08/29/24 Procedure(s): XR knee LT min 4V Accession Number(s): [id number] cc: TELEPHONE INFORMATION SUPERVISOR PHYSICIAN; Ana Tinoco HISTORY TUTOR~ EXAM: XR knee LT min 4V DATE: 08/29/2024 14:05 HISTORY: pain x 1 month/no known trauma . COMPARISON: None available. FINDINGS: Normal mineralization. No fracture or dislocation. No lytic or blastic lesion. Joint spaces are maintained. No erosion or periosteal change. Soft tissues within normal limits. IMPRESSION: No acute osseous finding in the left knee. Reviewed, dictated and finalized at [facility]. Critical Care Time Critical Care Time Critical Care Time: No Discharge Plan Discharge Clinical Impression: Acute pain of left lower extremity, Arthralgia of left thigh Patient Disposition: Home Condition: Stable Instructions: Antibiotic Form, Hip Pain (ED) Additional Instructions: Ice to the area 20-30 minutes 4-6 times a day Elevate above heart Elastic wrap or orthopedic splint as directed for comfort for the next 5-7 days Tylenol for lesser pain Ibuprofen regularly for the next 2-3 days for the inflammation Follow up with your primary care provider if the condition is not improving within 1 week or sooner if the Condition worsens with numbness, tingling, decrease sensation with weakness to seek ER. Patient Language: Panamanian Prescriptions: No Action buspirone 5 mg Tablet 10 mg PO BID bupropion HCl 150 mg Tablet Extended Release 24 Hr 150 mg PO QAM lisdexamfetamine [Vyvanse] 50 mg Capsule 50 mg PO DAILY trazodone 150 mg tablet Follow-up/Referrals: UNKNOWN,DOCTOR [Non-Staff] - Time of Disposition: 14:51
--- OUTSIDE RECORDS SUMMARY | 2024-08-29 13:33 | XMS_ITS ---
Author Organization Unknown Medications Medication Instructions Effective Dates (start - stop) Status buspirone hydrochloride 10 M G Oral Tablet - Completed naproxen 500 MG Oral Tablet [id number] :00:00Z - Completed buspirone hydrochloride 10 M G Oral Tablet - Completed buspirone hydrochloride 10 M G Oral Tablet - Completed lisdexamfetamine dimesylate 50 MG Oral Capsule [Vyvanse] - Completed {21 (methylprednisolone 4 MG Oral Tablet) } Pack - Completed naproxen 500 MG Oral Tablet [id number] :00:00Z - Completed - - Compl eted [...] - Completed naproxen 500 MG Oral Tablet [id number] :00:00Z - Completed lisdexamfetamine dimesylate 50 MG [...]
[2024-08-29 13:36] VITALS: BP 117/72; PULSE 85; RESP 18; TEMP 36.6; O2SAT 100
== END 2024-08-29 14:52 | disposition home or self-care (01) ==
PROVIDERS: Emergency Provider Nurse Practitioner Family
DX: M79.662 Pain in left lower leg (principal); M79.652 Pain in left thigh; F41.9 Anxiety disorder, unspecified; F32.A Depression, unspecified
CPT/HCPCS: 73502; 73564; 99214; G0463

== ENCOUNTER 2024-10-27 14:23 | Emergency (ER) | payer OTHER, SELFPAY ==
--- OUTSIDE RECORDS SUMMARY | 2024-10-27 14:32 | XMS_ITS | Referral Summary ---
Author Organization [facility] Address [address] [place] [address] Care Team Providers Care Returned Goods Repairer Name Role Phone Meme Pinedo MD Primary Care Provider [phone] Allergies Active Allergy Reactions Criticality Noted Date [...] on file Legal Sex Female 7:36 PM CLOTH DESIGNER Gender Identity Not on file Sexual Orientation Not on file Last Filed Vital Signs Vital Sign Reading Time Taken Comments Blood Pressure 100/62 06/21/2024 4:31 PM CLOTH DESIGNER Pulse 84 06/21/2024 4:31 PM CLOTH DESIGNER Temperature 36.9 C (98.4 F) 06/21/2024 4:31 PM CLOTH DESIGNER Respiratory Rate 16 06/21/2024 4:31 PM CLOTH DESIGNER Oxygen Saturation 98% 06/21/2024 4:31 PM CLOTH DESIGNER Inhaled Oxygen Concentration - - Weight 68.5 kg (151 lb) 06/21/2024 4:31 PM CLOTH DESIGNER Height 160 cm (5' 3) 06/21/2024 4:31 PM CLOTH DESIGNER Body Mass Index 26.75 06/21/2024 4:31 PM CLOTH DESIGNER Plan of Treatment Not on file Insurance [facility] Care Teams Returned Goods Repairer Relationship Specialty Start Date End Date Meme Pinedo MD PCP - General Family Medicine 08/04/23
--- OUTSIDE RECORDS SUMMARY | 2024-10-27 14:32 | XMS_ITS | Clinical Summary ---
Author Organization [facility] Address [address] [place] [address] Care Team Providers Care Occupational Analyst Name Role Phone Meme Pinedo MD Primary Care Provider [phone] Allergies Active Allergy Reactions Criticality Noted Date [...] Active Active Problems No known active problems Medical History Medical History Date Comments Anxiety [...] on file Legal Sex Female 7:36 PM GARMENT FORM ASSEMBLER Gender Identity Not on file Sexual Orientation Not on file Obstetrics History Last Filed Vital Signs Vital Sign Reading Time Taken Comments Blood Pressure 100/62 06/21/2024 4:31 PM GARMENT FORM ASSEMBLER Pulse 84 06/21/2024 4:31 PM GARMENT FORM ASSEMBLER Temperature 36.9 C (98.4 F) 06/21/2024 4:31 PM GARMENT FORM ASSEMBLER Respiratory Rate 16 06/21/2024 4:31 PM GARMENT FORM ASSEMBLER Oxygen Saturation 98% 06/21/2024 4:31 PM GARMENT FORM ASSEMBLER Inhaled Oxygen Concentration - - Weight 68.5 kg (151 lb) 06/21/2024 4:31 PM GARMENT FORM ASSEMBLER Height 160 cm (5' 3) 06/21/2024 4:31 PM GARMENT FORM ASSEMBLER Body Mass Index 26.75 06/21/2024 4:31 PM GARMENT FORM ASSEMBLER Plan of Treatment Health Maintenance Due Date Last Done Comments Cervical Cancer Screening 2001 Chlamydia and Gonorrhea (GC/ CT) Screening 2001 Depression Screening 2001 Hepatitis C Screening 2001 Pneumococcal vaccine <65 (1 of 1 - PPSV23) 2007 11/08/2002, 2001 Regular Well Visit/Exam 18-64 2019 DTaP/Tdap/Td Vaccine (7 - Td or Tdap) 12/31/2022 12/31/2012, 12/12/2006, 12/10/2004, Additional history exists Covid-19 Vaccine (3 - 2023-2 5 season) 2023 03/02/2021, 07/03/2020 Influenza Vaccine (Season Ended) 2024 02/12/2022, 02/27/2021, 02/09/2020, Additional history exists Hepatitis B Screening Completed 11/08/2002 , 08/24/2002, 2001, Additional history exists Varicella Vaccines Completed 12/12/2006, 08/24/2002 HPV Vaccines Completed 09/09/2017, 12/27, 01/12/2016 Meningococcal B Vaccine Completed 03/01/2022, 02/08 Insurance [facility] Care Teams Occupational Analyst Relationship Specialty Start Date End Date Meme Pinedo MD PCP - General Family Medicine 08/04/23
--- OUTSIDE RECORDS SUMMARY | 2024-10-27 14:33 | XMS_ITS ---
Author Organization Unknown Medications Medication Instructions Effective Dates (start - stop) Status buspirone hydrochloride 10 M G Oral Tablet - Completed naproxen 500 MG Oral Tablet [id number] :00:00Z - Completed buspirone hydrochloride 10 M G Oral Tablet - Completed buspirone hydrochloride 10 M G Oral Tablet - Completed lisdexamfetamine dimesylate 50 MG Oral Capsule [Vyvanse] - Completed {21 (methylprednisolone 4 MG Oral Tablet) } Pack - Completed naproxen 500 MG Oral Tablet [id number] :00:00Z - Completed - - Compl eted [...] - Completed naproxen 500 MG Oral Tablet [id number] :00:00Z - Completed lisdexamfetamine dimesylate 50 MG [...]
--- OUTSIDE RECORDS SUMMARY | 2024-10-27 14:33 | XMS_ITS | Encounter Summary ---
Author Organization [facility] Address [address] [place] [address] Care Team Providers Care Geosciences Professor Name Role Phone Zeinab Tian MD Primary Care Provider Mimi Palomo MD Primary Care Provider [phone] Reason for Visit * Reason Onset Date Comments MEDICATION REFILL 06/24/2017 Encounter Details Date Type Department Care Team (Late st Contact Info) Description 06/24/2017 Refill [facility] [place] [address] Nae Arteaga MD [address] [place] [id number] MEDICATION REFILL Social History Tobacco Use Types Packs/Day Years Used Date Smoking Tobacco: Never Alcohol Use Standard Drinks/Week Comments No 0 (1 standard drink = 0.6 oz pur e alcohol) Comments No Sex and Gender Information Value Date Recorded Sex Assigned at Not on file Legal Sex Female 5:41 AM FUNERAL DIRECTOR/EMBALMER Gender Identity Not on file Sexual Orientation [...] Saima Tang RN - 06/25/2017 8:12 AM FUNERAL DIRECTOR/EMBALMER Received refill request for protonix, last seen in November 2016 at the time of endoscopy. Will forward to Dr Arteaga. RAL DIRECTOR/EMBALMER * Telephone Encounter - Caryl Marte - 06/24/2017 3:25 PM CST Received refill request from Christ RAL DIRECTOR/EMBALMER documented in this encounter Plan of Treatment Not on file documented as of this encounter Visit Diagnoses Diagnosis Eosinophilic esophagitis documented in this encounter Care Teams Geosciences Professor Relationship Specialty Start Date End Date Zeinab Tian MD [address] [id number] PCP - General Pediatrics 01/26/13 08/19/17 Mimi Palomo MD [address] [place] [address] PCP - General 08/20/17 documented as of this encounter
--- OUTSIDE RECORDS SUMMARY | 2024-10-27 14:33 | XMS_ITS ---
Author Organization Unknown Medications Medication Instructions Effective Dates (start - stop) Status buspirone hydrochloride 10 M G Oral Tablet - Completed naproxen 500 MG Oral Tablet [id number] :00:00Z - Completed buspirone hydrochloride 10 M G Oral Tablet - Completed buspirone hydrochloride 10 M G Oral Tablet - Completed lisdexamfetamine dimesylate 50 MG Oral Capsule [Vyvanse] - Completed {21 (methylprednisolone 4 MG Oral Tablet) } Pack - Completed naproxen 500 MG Oral Tablet [id number] :00:00Z - Completed - - Compl eted [...] - Completed naproxen 500 MG Oral Tablet [id number] :00:00Z - Completed lisdexamfetamine dimesylate 50 MG [...]
--- OUTSIDE RECORDS SUMMARY | 2024-10-27 14:33 | XMS_ITS | Encounter Summary ---
Author Organization [facility] Address [address] [place] [address] Phone Care Team Providers Care Assistant Manager/Embalmer Name Role Phone Meme Pinedo MD Primary Care Provider [phone] Bindu Del Rosario APRN, [facility] Unavailable + [phone] Provider, None Primary Care Provider Unavailabl e Encounter Details Date Type Department Care Team (Late Contact Info) Description 09/26/2023 Behavioral Health Patient Survey [facility] [address] [place] [address] Whit Marie, [facility] [address] [place] [address] Social History Tobacco Use Types Packs/Day Years [...] as of this encounter Plan of Treatment Upcoming Encounters Date Type Department Care Team (Late Contact Info) Description 04/14/2025 9:15 AM POWDER SHOVELER Office Visit [facility] [place] [address] [place] [address] Ronald Dobbs MD [address] [facility] [address] [address] documented as of this encounter Goals Goal Patient Goal Type Associated Problems Recent Progress Patient-Stated? Author to be happy Behavioral Health Improving( 9:14 AM CDT) Yes Whit Marie, SAMPLE TESTER GRINDER Note: Goal/Objective: Increase ability to handle stressors. Anticipated Time Frame for Goal Completion: 8 months Goal Reviewed with: patient today Readiness to change: Thinking about making a change Department associated with goal: [facility] Steps to [...] documented as of this encounter Care Teams Assistant Manager/Embalmer Relationship Specialty Start Date End Date Meme Pinedo MD [address] [place] [address] PCP - General Family Medicine 09/18/22 10/13/23 Provider, None [place] PCP - General 09/07/24 Bindu Del Rosario, CONTINUITY PERSON, [facility] [address] [place] [address] Nurse Practitioner Advanced Practice Nurse 05/02/22 documented as of this encounter
--- OUTSIDE RECORDS SUMMARY | 2024-10-27 14:33 | XMS_ITS | Clinical Summary ---
Author Organization [facility] Address [address] [place] [address] Phone Care Team Providers Care Dewatering Filtering Supervisor Name Role Phone CirilorajniBindu APRN, BUSINESS RELATIONSHIP MANAGER Unavailable [phone]- [phone] Provider, None Primary Care Provider Unavailabl e Allergies Active Allergy Reactions Criticality Noted Date Comments Lactase Diarrhea,Vomiting High 03/01/2014 Tested positive allergy testing Tested positive allergy testing Peanut Allergen Powder-Dnfp Anaphylaxis High 05/29/2022 Medications MedroxyPROGESTERo ne Acetate (DEPO-PROVERA IM) by Intramuscular route. Active EPINEPHrine (EPIPEN) 0.3 MG/0.3ML Solution Prefilled Syringe by Intramuscular route once. Active pantoprazole (PROTONIX) 40 MG Tablet Delayed Response Take 1 Tablet by mouth in the morning and at bedtime. 30 Tablet 11/29/19 23 Active Vyvanse 50 MG CapsuleIndication s:Attention deficit hyperactivity disorder (ADHD), unspecified ADHD type Take 1 Capsule by mouth daily. 30 Capsule 12/27/19 23 Active methylPREDNISolon e (MEDROL DOSPACK) 4 MG Tablet Therapy PackIndications:L eft hip pain Use as per instructions on package. 1 Tablet 09/08/19 25 Active buPROPion (WELLBUTRIN) 150 MG XL tabletIndications :Attention deficit hyperactivity disorder (ADHD), unspecified ADHD type Take 1 Tablet by mouth every morning. 90 Tablet 1 10/08/19 25 Active busPIRone (BUSPAR) 10 MG TabletIndications :Attention deficit hyperactivity disorder (ADHD), unspecified ADHD type Take 1 Tablet by mouth 2 times daily. 180 Tablet 10/08/19 25 Active busPIRone (BUSPAR) 10 MG Tablet Take 1 Tablet by mouth 2 times daily. 180 Tablet 10/17/19 23 025 Discontin ued(Reord er) buPROPion (WELLBUTRIN) 150 MG XL tablet Take 1 Tablet by mouth every morning. 90 Tablet 1 10/17/19 23 025 Discontin ued(Reord er) Active Problems Problem Noted Date Diagnosed Date Mood disorder 07/31/2023 BMI 31.0-31.9,adult 10/16/2022 Panic disorder without agoraphobia 03/10/2017 Attention deficit hyperactiv ity disorder (ADHD), inattentive type, moderate 03/10/2017 Encounters Date Type Department Care Team Description 10/11/2024 Telephone [facility] [address] [place] [address] Ronald Dobbs MD 10/07/2024 9:30 AM CDT Office Visit [facility] [address] [place] [address] Ronald Dobbs MD Left hip pain (Primary Dx); Attention deficit hyperactivity disorder (ADHD), unspecified ADHD type; Encounter for immunization; Encounter for long-term (current) use of medications Discharge Disposition: Discharged to home or Selfcare 10/07/2024 Travel 09/07/2024 7:45 AM CDT Office Visit [facility] [address] [place] [address] Ronald Dobbs MD Left hip pain (Primary Dx) Discharge Disposition: Discharged to home or Selfcare 09/07/2024 Travel from Last 3 Months Immunizations Immunization Administration Dates Next Due DTAP [...] - 7 Valent 11/08/2002, 2001 TDAP Vaccine 10/07/2024,12/31/2012 Varicella Vaccine Live 12/12/2006,08/24/2002 Family History Medical [...] Never Smokeless Tobacco: Never Tobacco Cessation:Counseling Given: No Alcohol Use Standard Drinks/Week Comments No 0 (1 standard drink = 0.6 oz pur e alcohol) PHQ-2 Answer Date Recorded Total Score - Questions 1-9 0 08/26 Education Answer Date Recorded What is the highest level of school you have completed or the highest degree you have received? Some college, no degree 09/18/2022 Sexually Active Control Partners Comments Yes Male Comments No Sex and Gender Information Value Date Recorded Sex Assigned at Not on file Legal Sex Female 12:25 AM CDT Gender Identity Not on file Sexual Orientation Not on file Last Filed Vital Signs Vital Sign Reading Time Taken Comments Blood Pressure 96/62 10/07/2024 9:17 AM CDT Pulse 79 10/07/2024 9:17 AM CDT Temperature 36.2 C (97.1 F) 10/07/2024 9:17 AM CDT Respiratory Rate 16 10/07/2024 9:17 AM CDT Oxygen Saturation 98% 10/07/2024 9:17 AM CDT Inhaled Oxygen Concentration - - Weight 74.9 kg (165 lb 3.2 oz) 10/07/2024 9:17 A M CDT Height 160 cm (5' 3) 10/07/2024 9:17 AM CDT Body Mass Index 29.26 10/07/2024 9:17 AM CDT Plan of Treatment Upcoming Encounters Date Type Department Care Team (Late st Contact Info) Description 04/14/2025 9:15 AM WELL TENDER [facility] [address] [place] [address] Ronald Dobbs MD [address] [address] Health Maintenance Due Date Last Done Comments Hepatitis C Virus (HCV) Screening 2001 Pap Smear 2022 SARS-COV-2 Immunization ( season) 2023 03/02/2021, 07/03/2020 Influenza Immunization (Season Ended) 2024 02/12/2022, 02/27/2021, 02/09/2020, Additional history exists DTaP/Tdap/Td Immunization (8 - Td or Tdap) 10/07/2034 10/07/2024, 12/31/2012, 12/12/2006, Additional history exists Respiratory Syncytial Virus (RSV) Immunization (Adult) (1 [...] Improving( 9:14 AM CDT) Yes Whit Marie, WELL LOGGING OPERATOR MUD ANALYSIS Note: Goal/Objective: Increase ability to handle stressors. Anticipated Time Frame for Goal Completion: 8 months Goal Reviewed with: patient today Readiness to change: Thinking about making a change Department associated with goal: [facility] Steps to achieve [...] and or cope with anxiety and depression. Procedures Procedure Name Priority Date/Time Associated Diagnosis Comments UR TOXICOLOGY SCREEN 10/07/2024 12:00 AM CDT from Last 3 Months Results * UR TOXICOLOGY SCREEN (10/07/2024 12:00 AM CDT) 10/07/2024 Ronald Dobbs MD URINE ORDERABLES Final Result SCAN from Last 3 Months Insurance [facility] Care Teams Dewatering Filtering Supervisor Relationship Specialty Start Date End Date Provider, None [place] PCP - General 09/07/24 Bindu Del Rosario, ANGIOGRAPHY TECHNOLOGIST, BUSINESS RELATIONSHIP MANAGER [address] [place] [address] Nurse Practitioner Advanced Practice Nurse 05/02/22
--- OUTSIDE RECORDS SUMMARY | 2024-10-27 14:33 | XMS_ITS | Clinical Summary ---
Author Organization [facility] Address [address] [place] [address] Care Team Providers Care Web Content Developer Name Role Phone Mimi Palomo MD Primary Care Provider [phone] Source Comments [facility],non-owned Affiliates and Associated Physician Practices is amultiple site organization consisting of ambulatory clinics and hospital sitesin [place], [place], [place] and [place]. This disclosure is being madepursuant to the Care Everywhere program and may not contain all information available regarding this patient. Last updated 18.[facility] Allergies Active Allergy Reactions Criticality Noted Date [...] head CT (Jun 18, 2017) at [facility] in [place], [place] during evaluation of head injury following [...] nodule Assessment & Plan (07/02/2017 11:11 AM STEEL CHIPPER): Incidental, ~ 1 cm, left sided, solid/cystic [...] on file Legal Sex Female 5:41 AM STEEL CHIPPER Gender Identity Not on file Sexual Orientation Not on file Last Filed Vital Signs Vital Sign Reading Time Taken Comments Blood Pressure 118/62 06/01/2019 3:54 PM STEEL CHIPPER Pulse 91 02/09/2018 12:04 PM CDT per pcp Temperature 36.7 C (98.1 F) 02/09/2018 12:04 PM CDT per pcp Respiratory Rate 20 02/09/2018 12:04 PM CDT per pcp Oxygen Saturation 100% 02/09/2018 12:04 PM CDT per pcp Inhaled Oxygen Concentration - - Weight 72.1 kg (159 lb) 02/04/2020 12:49 PM CDT Height 158.6 cm (5' 2.44) 06/01/2019 3:54 PM CS T Body Mass Index - - Plan of Treatment Health Maintenance Due Date Last Done Comments HIV SCREENING 2016 HPV VACCINE (1 - 3-dose series) 2016 MENINGOCOCCAL (Group B) VACCINE SHARED DECISION-MAKING (1 of 2 - Standard) 2017 HEPATITIS C SCREENING 05/29/2019 DTAP/TDAP/TD VACCINES (1 - Tdap) 2020 HEPATITIS B VACCINE (1 of 3 - 19+ 3-dose series) 2020 PAP SMEAR 2022 CHLAMYDIA/GONORRHEA SCREENING 09/11/2023 09/10/2022 COVID-19 VACCINE ( season) 2023 03/02/2021, 07/03/2020 [...] patient's age to complete this topic Insurance [facility] Member Subscriber Plan / Payer (Ef fective for All Dates) Name:Orly Gutierres Relation to Subscriber:Self Name:ORLY GUTIERRES Payer ID:Not on file Group ID:Not on file Type:Medicaid [place] Address: [address] [id number] MEDICAID - OUT OF STATE MEDICAID [employer] [facility] [place] MEDICAID - OUT OF STATE MEDICAID - OUT OF [facility] MEDICAID - OUT OF [facility] [employer]NA MEDICAID - OUT OF STATE [employer]NA MEDICAID - OUT OF STATE [employer] MEDICAID - OUT OF STATE [employer] MEDICAID - OUT OF STATE [employer] MEDICAID - OUT OF STATE [employer] MEDICAID - OUT OF [facility] [employer]NA MEDICAID - OUT OF STATE HU[employer]NA [employer] MEDICAID - OUT OF STATE HU[employer]NA MEDICAID - OUT OF STATE [employer] MEDICAID - OUT OF STATE Care Teams Web Content Developer Relationship Specialty Start Date End Date Mimi Palomo MD [address] [place] [address] PCP - General 08/20/17
--- OUTSIDE RECORDS SUMMARY | 2024-10-27 14:33 | XMS_ITS | Encounter Summary ---
Author Organization [facility] Address [address] [place] [address] Phone Care Team Providers Care Review Appraiser Name Role Phone Meme Pinedo MD Primary Care Provider [phone] Bindu Del Rosario APRN, FRONT DESK ADMIN Unavailable [phone]- [phone] Provider, None Primary Care Provider Unavailabl e Encounter Details Date Type Department Care Team (Late st Contact Info) Description 02/27/2023 Behavioral Health Patient Survey [facility] [address] [place] [address] Whit Marie, [facility] [address] [place] [address] Social History Tobacco Use Types Packs/Day Years [...] st Contact Info) Description 04/14/2025 9:15 AM BLOCK BOLTER MULE OPERATOR Office Visit [facility] [address] [place] [address] Ronald Dobbs MD [address] [address] documented as of this encounter Goals Goal Patient Goal Type Associated Problems Recent Progress Patient-Stated? Author to be happy Behavioral Health Improving( 9:14 AM CDT) Yes Whit Marie, MOP MAN Note: Goal/Objective: Increase ability to handle stressors. Anticipated Time Frame for Goal Completion: 8 months Goal Reviewed with: patient today Readiness to change: Thinking about making a change Department associated with goal: [facility] Steps to [...] documented as of this encounter Care Teams Review Appraiser Relationship Specialty Start Date End Date Meme Pinedo MD [address] [place] [address] PCP - General Family Medicine 09/18/22 10/13/23 Provider, None [place] PCP - General 09/07/24 Bindu Del Rosario, WORKFORCE DEVELOPMENT PROGRAM DIRECTOR, FRONT DESK ADMIN [address] [place] [address] Nurse Practitioner Advanced Practice Nurse 05/02/22 documented as of this encounter
--- OUTSIDE RECORDS SUMMARY | 2024-10-27 14:33 | XMS_ITS | Encounter Summary ---
Author Organization [facility] Address [address] [place] [address] Phone Care Team Providers Care Pulp Beater Name Role Phone Meme Pinedo MD Primary Care Provider [phone] Bindu Del Rosario APRN, [facility] Unavailable + [phone] Provider, None Primary Care Provider Unavailabl e Encounter Details Date Type Department Care Team (Late Contact Info) Description 08/21/2023 Behavioral Health Patient Survey [facility] [address] [place] [address] Whit Marie, [facility] [address] [place] [address] Social History Tobacco Use Types Packs/Day Years [...] (Late Contact Info) Description 04/14/2025 9:15 AM COOK CHEF Office Visit [facility] [address] Ronald Dobbs MD [address]2 [facility] [address] [address] documented as of this encounter Goals Goal Patient Goal Type Associated Problems Recent Progress Patient-Stated? Author to be happy Behavioral Health Improving( 9:14 AM CDT) Yes Whit Marie, VEGETABLE CANNER Note: Goal/Objective: Increase ability to handle stressors. Anticipated Time Frame for Goal Completion: 8 months Goal Reviewed with: patient today Readiness to change: Thinking about making a change Department associated with goal: [facility] Steps to achieve [...] documented as of this encounter Care Teams Pulp Beater Relationship Specialty Start Date End Date Meme Pinedo MD [address] [facility] [place] [address] PCP - General Family Medicine 09/18/22 10/13/23 Provider, None [place] PCP - General 09/07/24 Bindu Del Rosario, PUBLIC HEALTH REGISTRAR, RIBBON LAP MACHINE TENDER [address] [place] [address] Nurse Practitioner Advanced Practice Nurse 05/02/22 documented as of this encounter
--- OUTSIDE RECORDS SUMMARY | 2024-10-27 14:33 | XMS_ITS | Encounter Summary ---
Author Organization [facility] Address [address] [place] [address] Phone Care Team Providers Care Sanitation Worker Cleaning Equipment Name Role Phone Meme Pinedo MD Primary Care Provider [phone] Bindu Del Rosario APRN, [facility] Unavailable + [phone] Provider, None Primary Care Provider Unavailabl e Encounter Details Date Type Department Care Team (Late Contact Info) Description 07/18/2023 Behavioral Health Patient Survey [facility] Behavioral Health Services [address] [place] [address] Whit Marie, [facility] [address] [place] [address] Social History Tobacco Use Types Packs/Day Years [...] (Late Contact Info) Description 04/14/2025 9:15 AM EMPLOYMENT INSTRUCTIONAL ASSOCIATE Office Visit [facility] - [facility] [address] [facility] [place] [address] Ronald Dobbs MD [address] [address] [address] documented as of this encounter Goals Goal Patient Goal Type Associated Problems Recent Progress Patient-Stated? Author to be happy Behavioral Health Improving( 9:14 AM CDT) Yes Whit Marie, WELDER FITTER GAS Note: Goal/Objective: Increase ability to handle stressors. Anticipated Time Frame for Goal Completion: 8 months Goal Reviewed with: patient today Readiness to change: Thinking about making a change Department associated with goal: [facility] Steps to achieve goal: [...] documented as of this encounter Care Teams Sanitation Worker Cleaning Equipment Relationship Specialty Start Date End Date Meme Pinedo MD [address] [facility] [place] [address] PCP - General Family Medicine 09/18/22 10/13/23 Provider, None [place] PCP - General 09/07/24 Bindu Del Rosario, TUBE COREMAKER, ICING MIXER [address] [place] [address] Nurse Practitioner Advanced Practice Nurse 05/02/22 documented as of this encounter
[2024-10-27 14:35] VITALS: BP 105/69; PULSE 85; RESP 18; TEMP 36.3; O2SAT 99
--- NOTE | 2024-10-27 15:12 | ED.GENADULT ---
HPI - General Adult General Chief complaint: Upper Respiratory Infection Stated complaint: Flu Like / Stomach Pain History of Present Illness HPI narrative: Cheo Rivero Is a 24-year-old female who presents with complaints not feeling well for about 3-4 days. She states that she has diarrhea for 3 days, runny nose, congestion, she had nausea and vomited at work today she also states that she has had some body aches for 3-4 days off and on. She states that she had a fever a couple days ago. She states that she has been able the drink soup and he has 2 since she vomited and she has kept it down. Related Data Home Medications ?Medication ?Instructions ?Recorded ?Confirmed ?Last Taken ?Type bupropion HCl 150 mg 24 hr tablet, 150 mg PO QAM 08/13/21 10/27/24 Unknown History extended release buspirone 5 mg tablet 10 mg PO BID 08/13/21 10/27/24 Unknown History lisdexamfetamine 50 mg capsule 50 mg PO DAILY 08/13/21 10/27/24 Unknown History (Vyvanse) trazodone 150 mg tablet mg 08/29/24 Unknown History Allergies Allergy/AdvReac Type Severity Reaction Status Date / Time No Known Allergies Allergy Mild Verified 10/27/24 14:41 Review of Systems Review of Systems: All systems reviewed & are unremarkable except as noted in HPI and below PMFSH Past Medical History Medical History Anxiety and depression Surgical History Surgical History No pertinent past surgical history Social History Social History Gender identity (if verbalized by the patient): Female Exam Narrative: GENERAL: Well-appearing, well-nourished, and in no acute distress. HEAD: Normocephalic, atraumatic. EYES: PERRLA and EOMI. ENT: Nares clear, no rhinorrhea or epistaxis. Mucous membranes moist. Oropharynx without tonsillar hypertrophy exudate or other lesions. Bilateral TMs pearly saucedo non bulging NECK: Supple. No adenopathy or masses. CHEST: Clear to auscultation. No respiratory distress. No wheezes rales or rhonchi HEART: Regular rate and rhythm. No murmur heard. Normal peripheral pulses. ABDOMEN: Soft, nontender, nondistended, normal active bowel sounds. EXTREMITIES: Normal range of motion. No edema. SKIN: Warm, dry, no rash. NEURO: No focal deficits. Alert and oriented x3. PSYCH: Normal mood and affect. Course Course Level of Care: Express Care Visit Vital Signs Vital signs: Vital Signs Temperature 36.3 C L 10/27/24 14:35 Pulse Rate 85 10/27/24 14:35 Respiratory Rate 18 10/27/24 14:35 Blood Pressure 105/69 10/27/24 14:35 Pulse Oximetry 99 10/27/24 14:35 Oxygen Delivery Room Air 10/27/24 14:35 Temperature 36.3 C L 10/27/24 14:35 Pulse Rate 85 10/27/24 14:35 Respiratory Rate 18 10/27/24 14:35 Blood Pressure 105/69 10/27/24 14:35 Pulse Oximetry 99 10/27/24 14:35 Oxygen Delivery Room Air 10/27/24 14:35 Medical Decision Making MDM Narrative Medical decision making narrative: 24 y/.o with several days of symptoms most suggestive of viral syndrome with URI symptoms as well as vomiting and diarrhea. Lungs are clear bilaterally. Patient is treated symptomatically with ondansetron here. Patient tolerating oral intake. Patient is comfortable going home and discharged home in stable condition with expectant management and return precautions. Procedures: Pulse oximetry interpretation - not hypoxic. Review of medical records. Viral swab: Negative Strep: Negative Urine dip : + blood Urine preg: Negative DISPOSITION: Discharged home in stable condition. IMPRESSION: 1. Acute upper respiratory tract infection, likely viral. 2. Acute nausea, vomiting and diarrhea. 3. Acute viral syndrome. Medical Records Medical records reviewed: Yes I reviewed the external patient's medical records. Vital Signs Vital Signs: Vital Signs Temperature 36.3 C L 10/27/24 14:35 Pulse Rate 85 10/27/24 14:35 Respiratory Rate 18 10/27/24 14:35 Blood Pressure 105/69 10/27/24 14:35 Pulse Oximetry 99 10/27/24 14:35 Oxygen Delivery Room Air 10/27/24 14:35 Temperature 36.3 C L 10/27/24 14:35 Pulse Rate 85 10/27/24 14:35 Respiratory Rate 18 10/27/24 14:35 Blood Pressure 105/69 10/27/24 14:35 Pulse Oximetry 99 10/27/24 14:35 Oxygen Delivery Room Air 10/27/24 14:35 Vitals reviewed by me Lab Data Labs: Lab Results 10/27/24 10/27/24 Range/Units 15:19 15:20 POC Urine Color Yellow POC Urine Clarity Clear POC Urine pH 5.5 POC Ur Specif [place] 1.030 POC Urine Protein Negative (Negative) POC Ur Glucose (UA) Negative (Negative) POC Urine Ketones Negative (Negative) POC Urine Blood Trace (Negative) POC Urine Nitrite Negative (Negative) POC Urine Bilirubin Negative (Negative) POC Urine Urobilinogen 0.2 POC U Leukocyte Esteras Negative (Negative) POC Urine HCG, Qual Negative (Negative) POC Influenza A Ag Negative (Negative) POC Influenza B Ag Negative (Negative) POC SARS CoV-2 Ag Negative (Negative) POC Grp A Strep Screen Negative (Negative) Discharge Plan Discharge Clinical Impression: Acute viral syndrome Patient Disposition: Home Condition: Stable Instructions: Antibiotic Form Additional Instructions: you likely have a viral syndrome You may continue to take Zofran for nausea as ordered Stick to clear liquids for the next 24 hours then slowly advance to a bland diet Push hydration Continue Tylenol and Motrin for body aches You should be feeling better in the next couple days If you develop abdominal pain/ fever/ vomiting/ or unable to keep liquids down or any worsening symptoms then go to the ER Patient Language: Uzbek Prescriptions: New ondansetron 4 mg tablet,disintegrating 4 mg PO Q6H PRN (Reason: nausea and vomiting) Qty: 12 0RF ondansetron 4 mg tablet,disintegrating 4 mg PO Q6H PRN (Reason: nausea and vomiting) Qty: 12 0RF No Action buspirone 5 mg Tablet 10 mg PO BID bupropion HCl 150 mg Tablet Extended Release 24 Hr 150 mg PO QAM lisdexamfetamine [Vyvanse] 50 mg Capsule 50 mg PO DAILY trazodone 150 mg tablet Follow-up/Referrals: Dilia,Ronald Trotter MD [Primary Care Provider] - Stand Alone Forms: Work/School Release IP Time of Disposition: 15:28
[2024-10-27 15:22] LABS: EDUAAPPEAR Clear; EDUABILI Negative (Negative); EDUABLOOD Trace (Negative); EDUACOLOR1 Yellow; EDUAGLUCOSE Negative (Negative); EDUAKETONE Negative (Negative); EDUALEUKO Negative (Negative); EDUANITRATE Negative (Negative); EDUAPH 5.5; EDUAPROTEIN Negative (Negative); EDUASPGRAVITY 1.030; EDUAUROBILI 0.2
[2024-10-27 15:22] LABS: BEDSIDEPREGUCG Negative (Negative); EDCOVIDSCREEN Negative (Negative); EDINFLUASCREEN Negative (Negative); EDINFLUBSCREEN Negative (Negative); EDSTREPNEGPOS1 Negative (Negative)
== END 2024-10-27 15:30 | disposition home or self-care (01) ==
PROVIDERS: Emergency Provider Nurse Practitioner Family; PCP Internal Medicine
DX: B34.9 Viral infection, unspecified (principal); Z20.822 Contact with and (suspected) exposure to COVID-19; F41.9 Anxiety disorder, unspecified; F32.A Depression, unspecified
CPT/HCPCS: 81003; 81025; 87081; 87426; 87804; 87880; 99213; G0463

== ENCOUNTER 2024-10-31 13:23 | Emergency (ER) | payer OTHER, SELFPAY ==
--- NOTE | 2024-10-31 13:25 | ED_ITS ---
HPI - Skin/Abscess/Foreign Bdy General Chief complaint: Skin/Abscess/Foreign Body Stated complaint: skin growth Time Seen by Provider: 10/31/24 13:25 Source: patient Mode of arrival: ambulatory Limitations: no limitations History of Present Illness HPI narrative: Cheo is a 24-year-old female patient presenting to the clinic today with complaints of a itchy painful rash to the right chin. She reports she has had the sore for approximately 3 days. It is draining some yellow discharge. No fevers, chills, body aches. Works at a local [employer]. Related Data Home Medications ?Medication ?Instructions ?Recorded ?Confirmed ?Last Taken ?Type bupropion HCl 150 mg 24 hr tablet, 150 mg PO QAM 08/13/21 10/27/24 Unknown History extended release buspirone 5 mg tablet 10 mg PO BID 08/13/21 10/27/24 Unknown History lisdexamfetamine 50 mg capsule 50 mg PO DAILY 08/13/21 10/27/24 Unknown History (Vyvyeceniae) Allergies Allergy/AdvReac Type Severity Reaction Status Date / Time No Known Allergies Allergy Mild Verified 10/31/24 13:32 Review of Systems Review of Systems: Pertinent positives per HPI. Patient denies any fever, chills, rash, headache, visual changes, dizziness, cough, runny nose, sore throat, shortness of breath, chest pain, palpitations, nausea, vomiting, diarrhea, constipation, abdominal pain, or any urinary issues. PMFSH Past Medical History Medical History Anxiety and depression Surgical History Surgical History No pertinent past surgical history Social History Social History Gender identity (if verbalized by the patient): Female Comments At the time of my signature, I reviewed and agree with the nursing past medical, surgical, social, and family history. There is no relevant family history pertinent to the patient complaint. Exam Narrative: General: Well-developed, well nourished, in no apparent distress Head: Normocephalic, atraumatic. Cardio: Regular rate and rhythm, s1 and s2 normal, no murmur appreciated. Resp: Clear to auscultation bilaterally, no rhonchi, rales, wheezing or rubs. Integumentary: [place], warm, and dry, intact without lesion, red, raised, blistered, honey-crusted circular wound to the right chin consistent with impetigo Course Course Emergency Course: Portions of this record may have been created with voice recognition software. Level of Care: Express Care Visit Vital Signs Vital signs: Vital Signs Temperature 36.5 C 10/31/24 13:32 Pulse Rate 62 10/31/24 13:32 Respiratory Rate 18 10/31/24 13:32 Blood Pressure 102/62 10/31/24 13:32 Pulse Oximetry 100 10/31/24 13:32 Oxygen Delivery Room Air 10/31/24 13:32 Temperature 36.5 C 10/31/24 13:32 Pulse Rate 62 10/31/24 13:32 Respiratory Rate 18 10/31/24 13:32 Blood Pressure 102/62 10/31/24 13:32 Pulse Oximetry 100 10/31/24 13:32 Oxygen Delivery Room Air 10/31/24 13:32 Vital signs reviewed MDM - Skin/Abscess/Foreign Bdy MDM Narrative Medical decision making narrative: At the time of visit patient is resting comfortably on the exam table. Patient appears to be nontoxic. Plan: I suspect patient has impetigo. Prescription for mupirocin cream was sent to the pharmacy. Supportive measures were discussed with the patient and they voiced understanding discharge instructions and agrees to treatment plan. Return precautions reviewed Differential Diagnosis Differential diagnosis: Likely abscess of skin or subcutaneous tissue, viral exanthem, dermatophytosis, urticaria, herpes zoster, allergic reaction to drug, cellulitis, eczema, insect bites, impetigo and contact dermatitis Discharge Plan Discharge Clinical Impression: Impetigo Patient Disposition: Home Condition: Stable Instructions: Antibiotic Form, Impetigo (ED) Additional Instructions: Keep wound clean and dry Wash daily with soap and water Apply mupirocin cream to the affected area twice daily as directed May take Tylenol/Motrin as needed for pain Follow-up with your primary care doctor in 5-7 days if symptoms persist Patient Language: Tongan Prescriptions: New mupirocin [Centany] 2 % ointment 1 applic topical BID 7 Days Qty: 22 0RF No Action buspirone 5 mg Tablet 10 mg PO BID bupropion HCl 150 mg Tablet Extended Release 24 Hr 150 mg PO QAM lisdexamfetamine [Vyvanse] 50 mg Capsule 50 mg PO DAILY Follow-up/Referrals: UNKNOWN,DOCTOR [Primary Care Provider] - Stand Alone Forms: Work/School Release IP Time of Disposition: 13:35 Quality NIHSS Nursing Documentation ED NIHSS nursing documentation: reviewed/agree
--- OUTSIDE RECORDS SUMMARY | 2024-10-31 13:26 | XMS_ITS | Clinical Summary ---
Author Organization [facility] Address [address] [place] [address] Phone Care Team Providers Care Administrative Dietitian Name Role Phone CirilorajniBindu APRN, JEWELRY SETTER Unavailable [phone]- [phone] Provider, None Primary Care Provider Unavailabl e [...] Type Department Care Team Description 10/11/2024 Telephone [facility] [address] [place] [address] Ronald Dobbs MD 10/07/2024 9:30 AM CDT Office Visit [facility] [address] [place] [address] Ronald Dobbs MD Left hip pain (Primary Dx); Attention deficit hyperactivity disorder (ADHD), unspecified ADHD type; Encounter for immunization; Encounter for long-term (current) use of medications Discharge Disposition: Discharged to home or Selfcare 10/07/2024 Travel 09/07/2024 7:45 AM CDT Office Visit [facility] [address] [place] [address] Ronald Dobbs MD Left hip pain (Primary [...] st Contact Info) Description 04/14/2025 9:15 AM MANAGER TRANSIT [facility] [address] [place] [address] Ronald Dobbs MD #[address] [address] Health Maintenance Due Date Last Done Comments [...] Improving( 9:14 AM CDT) Yes Whit Marie, ORACLE APPLICATION CONSULTANT Note: Goal/Objective: Increase ability to handle stressors. Anticipated Time Frame for Goal Completion: 8 months Goal Reviewed with: patient today Readiness to change: Thinking about making a change Department associated with goal: [facility] Steps to achieve [...] Result SCAN from Last 3 Months Insurance [facility] Care Teams Administrative Dietitian Relationship Specialty Start Date End Date Provider, None [place] PCP - General 09/07/24 Bindu Del Rosario, SAMPLE HAND, JEWELRY SETTER [address] [place] [address] Nurse Practitioner Advanced Practice Nurse 05/02/22
--- OUTSIDE RECORDS SUMMARY | 2024-10-31 13:26 | XMS_ITS | Encounter Summary ---
Author Organization [facility] Address [address] [place] [address] Phone Care Team Providers Care Patient Resource Specialist Name Role Phone Meme Pinedo MD Primary Care Provider [phone] Bindu Del Rosario APRN, [facility] Unavailable + [phone] Provider, None Primary Care Provider Unavailabl e Encounter Details Date Type Department Care Team (Late Contact Info) Description 09/26/2023 Behavioral Health Patient Survey [facility] [address] [place] [address] Whit Marie, [facility] [address] [place] [address] Social History Tobacco Use Types Packs/Day Years [...] (Late Contact Info) Description 04/14/2025 9:15 AM KNUCKLE BENDER Office Visit [facility] - [facility] [place] [address]2 [place] [address] Ronald Dobbs MD [facility]2 [facility] [address] [address] documented as of this encounter Goals Goal Patient Goal Type Associated Problems Recent Progress Patient-Stated? Author to be happy Behavioral Health Improving( 9:14 AM CDT) Yes Whit Marie, COORDINATOR CARDIOPULMONARY SERVICES Note: Goal/Objective: Increase ability to handle stressors. Anticipated Time Frame for Goal Completion: 8 months Goal Reviewed with: patient today Readiness to change: Thinking about making a change Department associated with goal: [facility] Steps to [...] documented as of this encounter Care Teams Patient Resource Specialist Relationship Specialty Start Date End Date Meme Pinedo MD [address] [facility] [place] [address] PCP - General Family Medicine 09/18/22 10/13/23 Provider, None [place] PCP - General 09/07/24 Bindu Del Rosario, SUCTION DREDGE DUMPING SUPERVISOR, MARKET STALL VENDOR [address] [place] [address] Nurse Practitioner Advanced Practice Nurse 05/02/22 documented as of this encounter
--- OUTSIDE RECORDS SUMMARY | 2024-10-31 13:26 | XMS_ITS | Encounter Summary ---
Author Organization [facility] Address [address] [place] [address] Phone Care Team Providers Care Problem Manager Name Role Phone Meme Pinedo MD Primary Care Provider [phone] Bindu Del Rosario APRN, [facility] Unavailable + [phone] Provider, None Primary Care Provider Unavailabl e Encounter Details Date Type Department Care Team (Late Contact Info) Description 08/21/2023 Behavioral Health Patient Survey [facility] 1 [place] [address] Whit Marie, [facility] [address] [place] [address] Social History Tobacco Use Types Packs/Day Years [...] (Late Contact Info) Description 04/14/2025 9:15 AM YARDAGE CONTROL OPERATOR FORMING Office Visit [facility] - Family [facility] [address]2 [facility] [place] [address] Ronald Dobbs MD [facility] [facility] [address] [address] documented as of this encounter Goals Goal Patient Goal Type Associated Problems Recent Progress Patient-Stated? Author to be happy Behavioral Health Improving( 9:14 AM CDT) Yes Whit Marie, SHIRT TURNER Note: Goal/Objective: Increase ability to handle stressors. Anticipated Time Frame for Goal Completion: 8 months Goal Reviewed with: patient today Readiness to change: Thinking about making a change Department associated with goal: [facility] Steps to [...] documented as of this encounter Care Teams Problem Manager Relationship Specialty Start Date End Date Meme Pinedo MD [address] [facility] [place] [address] PCP - General Family Medicine 09/18/22 10/13/23 Provider, None [place] PCP - General 09/07/24 Bindu Del Rosario, EXERCISE EQUIPMENT SPECIALIST, MISSION MANAGER [address] [place] [address] Nurse Practitioner Advanced Practice Nurse 05/02/22 documented as of this encounter
--- OUTSIDE RECORDS SUMMARY | 2024-10-31 13:26 | XMS_ITS | Clinical Summary ---
Author Organization [facility] Address [address] [facility] [place] [address] Care Team Providers Care Insurance Account Manager Name Role Phone Mimi Palomo MD Primary Care Provider [phone] Source Comments [facility],non-owned Affiliates and Associated Physician Practices is amultiple site organization consisting of ambulatory clinics and hospital sitesin [place], [place], [place]. This disclosure is being madepursuant to the Care Everywhere program and may not contain all information available regarding this patient. Last updated 18.[facility] Allergies Active Allergy Reactions Criticality Noted Date [...] on head CT (Jun 18, 2017) at [facility] in [place], [place] during evaluation of head injury following [...] nodule Assessment & Plan (07/02/2017 11:11 AM TRAFFIC ENGINEERING TECHNICIAN): Incidental, ~ 1 cm, left sided, solid/cystic [...] on file Legal Sex Female 5:41 AM TRAFFIC ENGINEERING TECHNICIAN Gender Identity Not on file Sexual Orientation Not on file Last Filed Vital Signs Vital Sign Reading Time Taken Comments Blood Pressure 118/62 06/01/2019 3:54 PM TRAFFIC ENGINEERING TECHNICIAN Pulse 91 02/09/2018 12:04 PM CDT per [...] patient's age to complete this topic Insurance [facility] Member Subscriber Plan / Payer (Ef fective for All Dates) Name:Orly Gutierres Relation to Subscriber:Self Name:ORLY GUTIERRES Payer ID:Not on file Group ID:Not on file Type:Medicaid [place] Address: [address] [id number] MEDICAID - OUT OF STATE MEDICAID [employer] [facility] MEDICAID - OUT OF STATE MEDICAID - OUT OF [facility] MEDICAID - OUT OF [facility] HU[employer]NA MEDICAID - OUT OF STATE HU[employer]NA MEDICAID - OUT OF STATE HU[employer]NA MEDICAID - OUT OF STATE [employer] MEDICAID - OUT OF STATE [employer] MEDICAID - OUT OF STATE [employer] MEDICAID - OUT OF [facility] HU[employer]NA MEDICAID - OUT OF STATE HU[employer]NA [employer] MEDICAID - OUT OF STATE HU[employer]NA MEDICAID - OUT OF STATE [employer] MEDICAID - OUT OF STATE Care Teams Insurance Account Manager Relationship Specialty Start Date End Date Mimi Palomo MD [address] [place] [address] PCP - General 08/20/17
--- OUTSIDE RECORDS SUMMARY | 2024-10-31 13:26 | XMS_ITS | Referral Summary ---
Author Organization [facility] Medical Office Building [address] Address [address] [place] [address] Care Team Providers Care Layout Mechanic Name Role Phone Meme Pinedo MD Primary Care Provider [phone] Allergies Active Allergy Reactions Criticality Noted Date [...] on file Legal Sex Female 7:36 PM POULTICE MACHINE OPERATOR Gender Identity Not on file Sexual Orientation Not on file Last Filed Vital Signs Vital Sign Reading Time Taken Comments Blood Pressure 100/62 06/21/2024 4:31 PM POULTICE MACHINE OPERATOR Pulse 84 06/21/2024 4:31 PM POULTICE MACHINE OPERATOR Temperature 36.9 C (98.4 F) 06/21/2024 4:31 PM POULTICE MACHINE OPERATOR Respiratory Rate 16 06/21/2024 4:31 PM POULTICE MACHINE OPERATOR Oxygen Saturation 98% 06/21/2024 4:31 PM POULTICE MACHINE OPERATOR Inhaled Oxygen Concentration - - Weight 68.5 kg (151 lb) 06/21/2024 4:31 PM POULTICE MACHINE OPERATOR Height 160 cm (5' 3) 06/21/2024 4:31 PM POULTICE MACHINE OPERATOR Body Mass Index 26.75 06/21/2024 4:31 PM POULTICE MACHINE OPERATOR Plan of Treatment Not on file Insurance [facility] Care Teams Layout Mechanic Relationship Specialty Start Date End Date Meme Pinedo MD PCP - General Family Medicine 08/04/23
--- OUTSIDE RECORDS SUMMARY | 2024-10-31 13:26 | XMS_ITS | Encounter Summary ---
Author Organization [facility] Address [address] [place] [address] Care Team Providers Care Drum Drier Operator Name Role Phone Zeinab Tian MD Primary Care Provider Mimi Palomo MD Primary Care Provider [phone] Reason for Visit * Reason Onset Date Comments MEDICATION REFILL 06/24/2017 Encounter Details Date Type Department Care Team (Late st Contact Info) Description 06/24/2017 Refill [facility] - [facility] [place] [address] Nae Arteaga MD [address] [place] [address] MEDICATION REFILL Social History Tobacco Use Types Packs/Day Years Used Date Smoking Tobacco: Never Alcohol Use Standard Drinks/Week Comments No 0 (1 standard drink = 0.6 oz pur e alcohol) Comments No Sex and Gender Information Value Date Recorded Sex Assigned at Not on file Legal Sex Female 5:41 AM APPLIANCE PAINTER AND REFINISHER Gender Identity Not on file Sexual Orientation [...] Saima Tang RN - 06/25/2017 8:12 AM APPLIANCE PAINTER AND REFINISHER Received refill request for protonix, last seen in November 2016 at the time of endoscopy. Will forward to Dr Arteaga. IANCE PAINTER AND REFINISHER * Telephone Encounter - Caryl Mrate - 06/24/2017 3:25 PM CST Received refill request from [facility] IANCE PAINTER AND REFINISHER documented in this encounter Plan of Treatment Not on file documented as of this encounter Visit Diagnoses Diagnosis Eosinophilic esophagitis documented in this encounter Care Teams Drum Drier Operator Relationship Specialty Start Date End Date Zeinab Tian MD [address] [id number] PCP - General Pediatrics 01/26/13 08/19/17 Mimi Palomo MD [address] [place] [address] PCP - General 08/20/17 documented as of this encounter
--- OUTSIDE RECORDS SUMMARY | 2024-10-31 13:26 | XMS_ITS ---
Author Organization Unknown Medications Medication Instructions Effective Dates (start - stop) Status buspirone hydrochloride 10 M G Oral Tablet - Completed naproxen 500 MG Oral Tablet [id number] :00:00Z - Completed buspirone hydrochloride 10 M G Oral Tablet - Completed buspirone hydrochloride 10 M G Oral Tablet - Completed lisdexamfetamine dimesylate 50 MG Oral Capsule [Vyvanse] - Completed {21 (methylprednisolone 4 MG Oral Tablet) } Pack - Completed naproxen 500 MG Oral Tablet [id number] :00:00Z - Completed - - Compl eted [...] - Completed naproxen 500 MG Oral Tablet [id number] :00:00Z - Completed lisdexamfetamine dimesylate 50 MG [...]
--- OUTSIDE RECORDS SUMMARY | 2024-10-31 13:26 | XMS_ITS | Encounter Summary ---
Author Organization [facility] Address [address] [place] [address] Phone Care Team Providers Care Hospice Admitting Clerk Name Role Phone Meme Pinedo MD Primary Care Provider [phone] Bindu Del Rosario APRN, [facility] Unavailable + [phone] Provider, None Primary Care Provider Unavailabl e Encounter Details Date Type Department Care Team (Late Contact Info) Description 07/18/2023 Behavioral Health Patient Survey [facility] [address] [place] [address] Whit Marie, [facility] [address] [place] [address] Social History Tobacco Use Types Packs/Day Years [...] (Late Contact Info) Description 04/14/2025 9:15 AM FOUNDATION ENGINEER Office Visit [facility] Medical [facility] - Family [facility] [address]2 [place] [address] Ronald Dobbs MD #2 [facility] [address] [address] documented as of this encounter Goals Goal Patient Goal Type Associated Problems Recent Progress Patient-Stated? Author to be happy Behavioral Health Improving( 9:14 AM CDT) Yes Whit Marie, ELECTROLYSIST Note: Goal/Objective: Increase ability to handle stressors. Anticipated Time Frame for Goal Completion: 8 months Goal Reviewed with: patient today Readiness to change: Thinking about making a change Department associated with goal: [facility] Steps to achieve goal: [...] documented as of this encounter Care Teams Hospice Admitting Clerk Relationship Specialty Start Date End Date Meme Pinedo MD [address] [facility] [place] [address] PCP - General Family Medicine 09/18/22 10/13/23 Provider, None [place] PCP - General 09/07/24 Bindu Del Rosario, SHOWROOM CONSULTANT, DIPLOMA MEDICAL ASSISTANT [address] [place] [address] Nurse Practitioner Advanced Practice Nurse 05/02/22 documented as of this encounter
--- OUTSIDE RECORDS SUMMARY | 2024-10-31 13:26 | XMS_ITS | Encounter Summary ---
Author Organization [facility] Address [address] [place] [address] Phone Care Team Providers Care Production Sampler Name Role Phone Meme Pinedo MD Primary Care Provider [phone] Bindu Del Rosario APRN, CYLINDER MACHINE OPERATOR Unavailable +- [phone] Provider, None Primary Care Provider Unavailabl e Encounter Details Date Type Department Care Team (Late st Contact Info) Description 02/27/2023 Behavioral Health Patient Survey [facility] Services 1 [place] [address] Whit Marie, [facility] [address] [place] [address] Social History Tobacco Use Types Packs/Day Years [...] st Contact Info) Description 04/14/2025 9:15 AM COGNOS CONSULTANT Office Visit [facility] Medical [facility] - Family [facility] [address] [place] [address] Ronald Dobbs MD #[address] [address] documented as of this encounter Goals Goal Patient Goal Type Associated Problems Recent Progress Patient-Stated? Author to be happy Behavioral Health Improving( 9:14 AM CDT) Yes Whit Marie, TAPPER HELPER Note: Goal/Objective: Increase ability to handle stressors. Anticipated Time Frame for Goal Completion: 8 months Goal Reviewed with: patient today Readiness to change: Thinking about making a change Department associated with goal: [facility] Steps to achieve [...] documented as of this encounter Care Teams Production Sampler Relationship Specialty Start Date End Date Meme Pinedo MD [address] [place] [address] PCP - General Family Medicine 09/18/22 10/13/23 Provider, None [place] PCP - General 09/07/24 Bindu Del Rosario, CORRECTIONAL FACILITY PSYCHIATRIST, CYLINDER MACHINE OPERATOR [address] [place] [address] Nurse Practitioner Advanced Practice Nurse 05/02/22 documented as of this encounter
--- OUTSIDE RECORDS SUMMARY | 2024-10-31 13:26 | XMS_ITS | Clinical Summary ---
Author Organization [facility] Medical Office Building B Address [address] [place] [address] Care Team Providers Care Building Inspector Name Role Phone Meme Pinedo MD Primary Care Provider [phone] Allergies Active Allergy Reactions Criticality Noted Date [...] on file Legal Sex Female 7:36 PM CARRIAGE RIDER Gender Identity Not on file Sexual Orientation Not on file Obstetrics History Last Filed Vital Signs Vital Sign Reading Time Taken Comments Blood Pressure 100/62 06/21/2024 4:31 PM CARRIAGE RIDER Pulse 84 06/21/2024 4:31 PM CARRIAGE RIDER Temperature 36.9 C (98.4 F) 06/21/2024 4:31 PM CARRIAGE RIDER Respiratory Rate 16 06/21/2024 4:31 PM CARRIAGE RIDER Oxygen Saturation 98% 06/21/2024 4:31 PM CARRIAGE RIDER Inhaled Oxygen Concentration - - Weight 68.5 kg (151 lb) 06/21/2024 4:31 PM CARRIAGE RIDER Height 160 cm (5' 3) 06/21/2024 4:31 PM CARRIAGE RIDER Body Mass Index 26.75 06/21/2024 4:31 PM CARRIAGE RIDER Plan of Treatment Health Maintenance Due Date [...] B Vaccine Completed 03/01/2022, 02/08 Insurance [facility] Care Teams Building Inspector Relationship Specialty Start Date End Date Meme Pinedo MD PCP - General Family Medicine 08/04/23
--- OUTSIDE RECORDS SUMMARY | 2024-10-31 13:28 | XMS_ITS ---
Author Organization Unknown Medications Medication Instructions Effective Dates (start - stop) Status buspirone hydrochloride 10 M G Oral Tablet - Completed naproxen 500 MG Oral Tablet [id number] :00:00Z - Completed buspirone hydrochloride 10 M G Oral Tablet - Completed buspirone hydrochloride 10 M G Oral Tablet - Completed lisdexamfetamine dimesylate 50 MG Oral Capsule [Vyvanse] - Completed {21 (methylprednisolone 4 MG Oral Tablet) } Pack - Completed naproxen 500 MG Oral Tablet [id number] :00:00Z - Completed - - Compl eted [...] - Completed naproxen 500 MG Oral Tablet [id number] :00:00Z - Completed lisdexamfetamine dimesylate 50 MG [...]
[2024-10-31 13:32] VITALS: BP 102/62; PULSE 62; RESP 18; TEMP 36.5; O2SAT 100
== END 2024-10-31 13:39 | disposition home or self-care (01) ==
PROVIDERS: Emergency Provider Nurse Practitioner Family
DX: L01.00 Impetigo, unspecified (principal); F41.9 Anxiety disorder, unspecified; F32.A Depression, unspecified
CPT/HCPCS: 99213; G0463

== ENCOUNTER 2024-11-09 11:29 | Emergency (ER) | payer OTHER, SELFPAY ==
[2024-11-09 11:36] VITALS: BP 126/71; PULSE 89; RESP 18; TEMP 36.5; O2SAT 99
--- OUTSIDE RECORDS SUMMARY | 2024-11-09 11:42 | XMS_ITS | Encounter Summary ---
Author Organization [facility] Address [address] [place] [address] Phone Care Team Providers Care Medicine Aide Name Role Phone Meme Pinedo MD Primary Care Provider [phone] Bindu Del Rosario APRN, [facility] Unavailable + [phone] Provider, None Primary Care Provider Unavailabl e Encounter Details Date Type Department Care Team (Late Contact Info) Description 09/26/2023 Behavioral Health Patient Survey [facility] Behavioral Health Services 1 [place] [address] Whit Marie, [facility] [address] [place] [address] Social History Tobacco Use Types Packs/Day Years [...] (Late Contact Info) Description 04/14/2025 9:15 AM TILE INSTALLER Office Visit [facility] Medical [facility] - Family [facility] #2 [facility] [place] [address] Ronald Dobbs MD [facility] [address] [address] documented as of this encounter Goals Goal Patient Goal Type Associated Problems Recent Progress Patient-Stated? Author to be happy Behavioral Health Improving( 9:14 AM CDT) Yes Whit Marie, FISH BIN TENDER Note: Goal/Objective: Increase ability to handle stressors. Anticipated Time Frame for Goal Completion: 8 months Goal Reviewed with: patient today Readiness to change: Thinking about making a change Department associated with goal[facility] Steps to achieve [...] documented as of this encounter Care Teams Medicine Aide Relationship Specialty Start Date End Date Meme Pinedo MD [facility] [place] [address] PCP - General Family Medicine 09/18/22 10/13/23 Provider, None [place] PCP - General 09/07/24 Bindu Del Rosario, PROPERTY OFFICER, INJECTION MOLDING MACHINE TENDER [address] [place] [address] Nurse Practitioner Advanced Practice Nurse 05/02/22 documented as of this encounter
--- OUTSIDE RECORDS SUMMARY | 2024-11-09 11:42 | XMS_ITS | Encounter Summary ---
Author Organization [facility] Address [address] [place] [address] Phone Care Team Providers Care Optical Fabrication Technician Name Role Phone Meme Pinedo MD Primary Care Provider [phone] [phone] Bindu Del Rosario APRN, [facility] Unavailable + [phone] Provider, None Primary Care Provider Unavailabl e Encounter Details Date Type Department Care Team (Late Contact Info) Description 08/21/2023 Behavioral Health Patient Survey [facility] Behavioral Health Services 1 [place] [address] Whit Marie, [facility] [address]1 [place] [address] Social History Tobacco Use Types Packs/Day Years [...] (Late Contact Info) Description 04/14/2025 9:15 AM EMERGENCY RESPONSE COORDINATOR Office Visit [facility] Medical Group - Family [facility] #2 [place] [address] Ronald Dobbs MD #2 [facility] [address] [address] documented as of this encounter Goals Goal Patient Goal Type Associated Problems Recent Progress Patient-Stated? Author to be happy Behavioral Health Improving( 9:14 AM CDT) Yes Whit Marie, [employer] HIGH SCHOOL TEACHER Note: Goal/Objective: Increase ability to handle stressors. Anticipated Time Frame for Goal Completion: 8 months Goal Reviewed with: patient today Readiness to change: Thinking about making a change Department associated with goal: [facility] Steps to achieve [...] documented as of this encounter Care Teams Optical Fabrication Technician Relationship Specialty Start Date End Date Meme Pinedo MD [address] [facility] [place] [address] PCP - General Family Medicine 09/18/22 10/13/23 Provider, None [place] PCP - General 09/07/24 Bindu Del Rosario, DENIER CONTROL OPERATOR, PRINT SUPPORT SPECIALIST [address] [place] [address] Nurse Practitioner Advanced Practice Nurse 05/02/22 documented as of this encounter
--- OUTSIDE RECORDS SUMMARY | 2024-11-09 11:42 | XMS_ITS | Clinical Summary ---
Author Organization [facility] Address [address] [facility] [place] [address] Care Team Providers Care Kelly Machine Operator Name Role Phone Mimi Palomo MD Primary Care Provider [phone] Source Comments [facility],non-owned Affiliates and Associated Physician Practices is amultiple site organization consisting of ambulatory clinics and hospital sitesin [place], [place], [place] and [place]. This disclosure is being madepursuant to the Care Everywhere program and may not contain all information available regarding this patient. Last updated 18.[facility] Allergies Active Allergy Reactions Criticality Noted Date [...] on head CT (Jun 18, 2017) at [facility] in [place], [place] during evaluation of head injury following [...] nodule Assessment & Plan (07/02/2017 11:11 AM DIAMOND SIZER): Incidental, ~ 1 cm, left sided, solid/cystic [...] on file Legal Sex Female 5:41 AM DIAMOND SIZER Gender Identity Not on file Sexual Orientation Not on file Last Filed Vital Signs Vital Sign Reading Time Taken Comments Blood Pressure 118/62 06/01/2019 3:54 PM DIAMOND SIZER Pulse 91 02/09/2018 12:04 PM CDT per [...] 03/02/2021, 07/03/2020 DEPRESSION SCREENING 04/28/2024 INFLUENZA VACCINE (#1) 2024 2, 02/27/2021, 02/09/2020, Additional history exists ZOSTER VACCINE (1 of 2) 2051 HIB VACCINE Aged Out No longer eligi ble based on patient's age to complete this topic MENINGOCOCCAL GROUPS A/C/Y/W VACCINE Aged Out No longer eligible based on patient's age to complete this topic PNEUMOCOCCAL VACCINE Aged Out No long er eligible based on patient's age to complete this topic Insurance [facility] Member Subscriber Plan / Payer (Ef fective for All Dates) Name:Orly Gutierres Relation to Subscriber:Self Name:ORLY GUTIERRES Payer ID:Not on file Group ID:Not on file Type:Medicaid [place] Address: [address] [id number] MEDICAID - OUT OF STATE MEDICAID [employer] [facility] MEDICAID - OUT OF STATE MEDICAID - OUT OF [facility] MEDICAID - OUT OF [facility] [employer] MEDICAID - OUT OF STATE [employer]NA MEDICAID - OUT OF STATE [employer] MEDICAID - OUT OF STATE [employer] MEDICAID - OUT OF STATE [employer] MEDICAID - OUT OF STATE [employer] MEDICAID - OUT OF [facility] [employer] MEDICAID - OUT OF STATE HU[employer]NA [employer] MEDICAID - OUT OF STATE HU[employer]NA MEDICAID - OUT OF STATE [employer] MEDICAID - OUT OF STATE Care Teams Kelly Machine Operator Relationship Specialty Start Date End Date Mimi Palomo MD [address] [place] [address] PCP - General 08/20/17
--- OUTSIDE RECORDS SUMMARY | 2024-11-09 11:42 | XMS_ITS | Clinical Summary ---
Author Organization [facility] Address [address] [place] [address] Phone Care Team Providers Care Steam Shovel Engineer Name Role Phone CiriloPeter urbanalf Ramirez APRN, TOP LIFT COMPRESSER Unavailable [phone] Provider, None Primary Care Provider Unavailabl e [...] times daily. 180 Tablet 10/08/19 25 Active Active Problems Problem Noted Date Diagnosed Date Mood disorder 07/31/2023 BMI 31.0-31.9,adult 10/16/2022 Panic disorder without agoraphobia 03/10/2017 Attention deficit hyperactiv ity disorder (ADHD), inattentive type, moderate 03/10/2017 Encounters Date Type Department Care Team Description 10/11/2024 Telephone [facility] [address]2 [place] [address] Ronald Dobbs MD 10/07/2024 9:30 AM CDT Office Visit [facility] [address] [place] [address] Ronald Dobbs MD Left hip pain (Primary Dx); Attention deficit hyperactivity disorder (ADHD), unspecified ADHD type; Encounter for immunization; Encounter for long-term (current) use of medications Discharge Disposition: Discharged to home or Selfcare 10/07/2024 Travel 09/07/2024 7:45 AM CDT Office Visit [facility] [address] [place] [address] Ronald Dobbs MD Left hip pain (Primary [...] Nasal 02/15/2014, 12/31/2012 Influenza Vaccine, Quadrivalent, PF /11/2021,02/27/2021,02/09/2020,03/11,01/14/2017 Influenza, Injectable, Quadrivalent 01/12/2016 MMR Vaccine 12/12/2006,08/24/2002 [...] st Contact Info) Description 04/14/2025 9:15 AM BIOMASS PLANT MANAGER [facility] #[address] [place] [address] Ronald Dobbs MD #[address] [address] Health Maintenance Due Date Last Done Comments Hepatitis C Virus (HCV) Screening 2001 Pap Smear 2022 SARS-COV-2 Immunization ( season) 2023 03/02/2021, 07/03/2020 Influenza Immunization (#1) 12/27/202401/26, 02/27/2021, 02/09/2020, Additional history exists DTaP/Tdap/Td Immunization [...] Improving( 9:14 AM CDT) Yes Whit Marie, SENIOR BENEFITS SPECIALIST Note: Goal/Objective: Increase ability to handle stressors. Anticipated Time Frame for Goal Completion: 8 months Goal Reviewed with: patient today Readiness to change: Thinking about making a change Department associated with goal: [facility] Steps to achieve [...] Result SCAN from Last 3 Months Insurance [facility] Care Teams Steam Shovel Engineer Relationship Specialty Start Date End Date Provider, None [place] PCP - General 09/07/24 Bindu Del Rosario, POSTING SPECIALIST, TOP LIFT COMPRESSER [address] [place] [address] Nurse Practitioner Advanced Practice Nurse 05/02/22
--- OUTSIDE RECORDS SUMMARY | 2024-11-09 11:42 | XMS_ITS | Encounter Summary ---
Author Organization [facility] Address [address] [place] [address] Phone Care Team Providers Care Repairer Handtools Name Role Phone Meme Pinedo MD Primary Care Provider [phone] Bindu Del Rosario APRN, DEALER SALES REP Unavailable [phone]- [phone] Provider, None Primary Care Provider Unavailabl e Encounter Details Date Type Department Care Team (Late st Contact Info) Description 02/27/2023 Behavioral Health Patient Survey [facility] Behavioral Health Services 1 [place] [address] Whit Marie, [facility] [address] [place] [address] Social History Tobacco Use Types Packs/Day Years [...] st Contact Info) Description 04/14/2025 9:15 AM HEARING SCREENER Office Visit [facility] Medical Group - Family [facility] [address] [place] [address] Ronald Dobbs MD #[address] [address] documented as of this encounter Goals Goal Patient Goal Type Associated Problems Recent Progress Patient-Stated? Author to be happy Behavioral Health Improving( 9:14 AM CDT) Yes Whit Marie, FURNACE OPERATOR AND TENDER Note: Goal/Objective: Increase ability to handle stressors. Anticipated Time Frame for Goal Completion: 8 months Goal Reviewed with: patient today Readiness to change: Thinking about making a change Department associated with goal: [facility] Steps to achieve goal: [...] documented as of this encounter Care Teams Repairer Handtools Relationship Specialty Start Date End Date Meme Pinedo MD [address] [place] [address] PCP - General Family Medicine 09/18/22 10/13/23 Provider, None [place] PCP - General 09/07/24 Bindu Del Rosario, CLASSIFIED ADVERTISING CLERK, DEALER SALES REP [address] [place] [address] Nurse Practitioner Advanced Practice Nurse 05/02/22 documented as of this encounter
--- OUTSIDE RECORDS SUMMARY | 2024-11-09 11:42 | XMS_ITS ---
Author Organization Unknown Medications Medication Instructions Effective Dates (start - stop) Status buspirone hydrochloride 10 M G Oral Tablet - Completed naproxen 500 MG Oral Tablet [id number] :00:00Z - Completed buspirone hydrochloride 10 M G Oral Tablet - Completed buspirone hydrochloride 10 M G Oral Tablet - Completed lisdexamfetamine dimesylate 50 MG Oral Capsule [Vyvanse] - Completed {21 (methylprednisolone 4 MG Oral Tablet) } Pack - Completed naproxen 500 MG Oral Tablet [id number] :00:00Z - Completed - - Compl eted [...] - Completed naproxen 500 MG Oral Tablet [id number] :00:00Z - Completed lisdexamfetamine dimesylate 50 MG [...]
--- OUTSIDE RECORDS SUMMARY | 2024-11-09 11:42 | XMS_ITS | Encounter Summary ---
Author Organization [facility] Address [address] [place] [address] Care Team Providers Care Cable Worker Helper Name Role Phone Zeinab Tian MD Primary Care Provider Mimi Palomo MD Primary Care Provider Reason for Visit * Reason Onset Date Comments MEDICATION REFILL 06/24/2017 Encounter Details Date Type Department Care Team (Late st Contact Info) Description 06/24/2017 Refill [facility] - [facility] [place] [address] Nae Arteaga MD [address] [place] [address] MEDICATION REFILL Social History Tobacco Use Types Packs/Day Years Used Date Smoking Tobacco: Never Alcohol Use Standard Drinks/Week Comments No 0 (1 standard drink = 0.6 oz pur e alcohol) Comments No Sex and Gender Information Value Date Recorded Sex Assigned at Not on file Legal Sex Female 5:41 AM BANQUET LINE COOK Gender Identity Not on file Sexual Orientation [...] Saima Tang RN - 06/25/2017 8:12 AM BANQUET LINE COOK Received refill request for protonix, last seen in November 2016 at the time of endoscopy. Will forward to Dr Arteaga. UET LINE COOK * Telephone Encounter - Caryl Marte - 06/24/2017 3:25 PM CST Received refill request from [facility] UET LINE COOK documented in this encounter Plan of Treatment Not on file documented as of this encounter Visit Diagnoses Diagnosis Eosinophilic esophagitis documented in this encounter Care Teams Cable Worker Helper Relationship Specialty Start Date End Date Zeinab Tian MD [address] [address] PCP - General Pediatrics 01/26/13 08/19/17 Mimi Palomo MD [address] [place] [address] PCP - General 08/20/17 documented as of this encounter
--- OUTSIDE RECORDS SUMMARY | 2024-11-09 11:42 | XMS_ITS | Encounter Summary ---
Author Organization [facility] Address [address] [place] [address] Phone Care Team Providers Care Lpn Instructor Name Role Phone Meme Pinedo MD Primary Care Provider [phone] [phone] Bindu Del Rosario APRN, [facility] Unavailable + [phone] Provider, None Primary Care Provider Unavailabl e Encounter Details Date Type Department Care Team (Late Contact Info) Description 07/18/2023 Behavioral Health Patient Survey [facility] Behavioral Health Services 1 [place] [address] Whit Marie, [facility] [address]1 [place] [address] Social History Tobacco Use Types Packs/Day Years [...] (Late Contact Info) Description 04/14/2025 9:15 AM CHARACTER ACTRESS Office Visit [facility] Medical Group - Family [facility] #2 [facility] [address] Ronald Dobbs MD #2 [facility] [address] [address] documented as of this encounter Goals Goal Patient Goal Type Associated Problems Recent Progress Patient-Stated? Author to be happy Behavioral Health Improving( 9:14 AM CDT) Yes Whit Marei, HAMMER DRIVER Note: Goal/Objective: Increase ability to handle stressors. Anticipated Time Frame for Goal Completion: 8 months Goal Reviewed with: patient today Readiness to change: Thinking about making a change Department associated with goal: [facility] Steps to achieve [...] documented as of this encounter Care Teams Lpn Instructor Relationship Specialty Start Date End Date Meme Pinedo MD [address] [facility] [place] [address] PCP - General Family Medicine 09/18/22 10/13/23 Provider, None [place] PCP - General 09/07/24 Bindu Del Rosario, CENTRAL SUPPLY TECHNICIAN SUPERVISOR, SAND ANALYST [address] [place] [address] Nurse Practitioner Advanced Practice Nurse 05/02/22 documented as of this encounter
--- OUTSIDE RECORDS SUMMARY | 2024-11-09 11:42 | XMS_ITS | Referral Summary ---
Author Organization [facility] Address [address] [place] [address] Care Team Providers Care Gas Derrick Operator Name Role Phone Meme Pinedo MD Primary Care Provider +1- [phone] Allergies Active Allergy Reactions Criticality Noted Date [...] on file Legal Sex Female 7:36 PM DISABILITY INSURANCE HEARING OFFICER Gender Identity Not on file Sexual Orientation Not on file Last Filed Vital Signs Vital Sign Reading Time Taken Comments Blood Pressure 100/62 06/21/2024 4:31 PM DISABILITY INSURANCE HEARING OFFICER Pulse 84 06/21/2024 4:31 PM DISABILITY INSURANCE HEARING OFFICER Temperature 36.9 C (98.4 F) 06/21/2024 4:31 PM DISABILITY INSURANCE HEARING OFFICER Respiratory Rate 16 06/21/2024 4:31 PM DISABILITY INSURANCE HEARING OFFICER Oxygen Saturation 98% 06/21/2024 4:31 PM DISABILITY INSURANCE HEARING OFFICER Inhaled Oxygen Concentration - - Weight 68.5 kg (151 lb) 06/21/2024 4:31 PM DISABILITY INSURANCE HEARING OFFICER Height 160 cm (5' 3) 06/21/2024 4:31 PM DISABILITY INSURANCE HEARING OFFICER Body Mass Index 26.75 06/21/2024 4:31 PM DISABILITY INSURANCE HEARING OFFICER Plan of Treatment Not on file Insurance [facility] Care Teams Gas Derrick Operator Relationship Specialty Start Date End Date Meme Pinedo MD PCP - General Family Medicine 08/04/23
--- OUTSIDE RECORDS SUMMARY | 2024-11-09 11:42 | XMS_ITS | Clinical Summary ---
Author Organization [facility] Address [address] [place] [address] Care Team Providers Care Student Ambassador Name Role Phone Meme Pinedo MD Primary Care Provider +1- [phone] Allergies Active Allergy Reactions Criticality Noted Date [...] on file Legal Sex Female 7:36 PM TIRE MAN Gender Identity Not on file Sexual Orientation Not on file Obstetrics History Last Filed Vital Signs Vital Sign Reading Time Taken Comments Blood Pressure 100/62 06/21/2024 4:31 PM TIRE MAN Pulse 84 06/21/2024 4:31 PM TIRE MAN Temperature 36.9 C (98.4 F) 06/21/2024 4:31 PM TIRE MAN Respiratory Rate 16 06/21/2024 4:31 PM TIRE MAN Oxygen Saturation 98% 06/21/2024 4:31 PM TIRE MAN Inhaled Oxygen Concentration - - Weight 68.5 kg (151 lb) 06/21/2024 4:31 PM TIRE MAN Height 160 cm (5' 3) 06/21/2024 4:31 PM TIRE MAN Body Mass Index 26.75 06/21/2024 4:31 PM TIRE MAN Plan of Treatment Health Maintenance Due Date [...] Meningococcal B Vaccine Completed 03/01/2022, 02/08 Insurance [facility] Care Teams Student Ambassador Relationship Specialty Start Date End Date Meme Pinedo MD PCP - General Family Medicine 08/04/23
--- OUTSIDE RECORDS SUMMARY | 2024-11-09 11:43 | XMS_ITS ---
Author Organization Unknown Medications Medication Instructions Effective Dates (start - stop) Status buspirone hydrochloride 10 M G Oral Tablet - Completed naproxen 500 MG Oral Tablet [id number] :00:00Z - Completed buspirone hydrochloride 10 M G Oral Tablet - Completed buspirone hydrochloride 10 M G Oral Tablet - Completed lisdexamfetamine dimesylate 50 MG Oral Capsule [Vyvanse] - Completed {21 (methylprednisolone 4 MG Oral Tablet) } Pack - Completed naproxen 500 MG Oral Tablet [id number] :00:00Z - Completed - - Compl eted [...] - Completed naproxen 500 MG Oral Tablet [id number] :00:00Z - Completed lisdexamfetamine dimesylate 50 MG [...]
--- NOTE | 2024-11-09 12:14 | ED.ABDPAIN ---
HPI - Abdominal Pain General Chief Complaint: Abdominal Pain Stated Complaint: Abdominal Pain/Vomiting Time Seen by Provider: 11/09/24 11:35 Source: patient and RN notes reviewed Mode of arrival: ambulatory Limitations: no limitations History of Present Illness HPI narrative: 24-year-old female presents Express Care complaining of nausea, vomiting, diarrhea, abdominal pain since yesterday. Patient says she ate some chicken at work yesterday and started getting sick afterwards. Patient reports having loose stools, uncontrollable nausea vomiting, generalized abdominal pain. Patient also reports tactile fevers. Patient denies any upper respiratory symptoms, cough, chest pain, shortness of breath, bloody stools, vomiting blood, chills, body aches, any other symptoms. Patient tried taking Zofran at home with no relief. Patient denies any significant past medical history. Related Data Home Medications ?Medication ?Instructions ?Recorded ?Confirmed ?Last Taken ?Type bupropion HCl 150 mg 24 hr tablet, 150 mg PO QAM 08/13/21 10/27/24 Unknown History extended release buspirone 5 mg tablet 10 mg PO BID 08/13/21 10/27/24 Unknown History lisdexamfetamine 50 mg capsule 50 mg PO DAILY 08/13/21 10/27/24 Unknown History (Vyvanse) Allergies Allergy/AdvReac Type Severity Reaction Status Date / Time No Known Allergies Allergy Mild Verified 10/31/24 13:32 Review of Systems Review of Systems: CONSTITUTIONAL: Positive for tactile fevers. Negative for chills, body aches, or sweats. EYES: Denies visual changes, redness, or discharge. ENT: Denies rhinorrhea, congestion, sore throat, or otalgia. CARDIOVASCULAR: Denies chest pain, palpitations, or edema. RESPIRATORY: Denies cough or dyspnea. GASTROINTESTINAL: Positive for abdominal pain, nausea, vomiting, diarrhea. Negative for Bloody stools, hematochezia. GENITOURINARY: Denies dysuria or hematuria. SKIN: Denies rash or itching. MUSCULOSKELETAL: Denies back pain, joint pain, or myalgia. NEUROLOGIC: Denies headache, numbness, or weakness. PSYCHIATRIC: Denies anxiety or depression. All other systems reviewed are negative, except as documented in HPI. [facility] Past Medical History Medical History Anxiety and depression Surgical History Surgical History No pertinent past surgical history Social History Social History Gender identity (if verbalized by the patient): Female Exam Narrative: GENERAL: This is a well-nourished, well-developed adult, in no apparent distress. They are non ill-appearing, nontoxic appearing. HEAD: normocephalic, atraumatic. EYES: Sclera clear/white. Vision is grossly intact. Conjunctiva normal bilaterally. Extraocular movements intact. EARS: External ears normal, Hearing grossly intact. NOSE: External nose normal THROAT: Mucous membranes moist NECK: Normal range of motion CARDIOVASCULAR: Regular rate and rhythm. Normal S1-S2. No clicks, gallops, rubs, murmurs. RESPIRATORY: Respiratory rate normal, respiratory effort nonlabored, no respiratory distress. Lung sounds clear through auscultation throughout. Lung sounds equal bilaterally. No adventitious lung sounds. GASTROINTESTINAL: Abdomen soft, flat, nondistended. Bowel sounds are hypoactive. No hepato-splenomegaly, or palpable masses. No guarding. No rebound tenderness. Diffuse tenderness throughout. There is right lower quadrant tenderness. Positive obturator sign. Negative psoas sign. SKIN: warm, Dry, intact with no suspicious lesions or rash, good texture and turgor. NEURO: awake, alert, and oriented to person, place and time. There were no obvious focal neurologic abnormalities. EXTREMITIES: No joint tenderness, effusion, or edema noted. BACK: Nontender without deformity. Course Course Emergency Course: Portions of this record may have been created with voice recognition software Level of Care: Express Care Visit Vital Signs Vital signs: Vital Signs Temperature 97.7 F 11/09/24 11:36 Pulse Rate 89 11/09/24 11:36 Respiratory Rate 18 11/09/24 11:36 Blood Pressure 126/71 11/09/24 11:36 Pulse Oximetry 99 11/09/24 11:36 Oxygen Delivery Room Air 11/09/24 11:36 Temperature 97.7 F 11/09/24 11:36 Pulse Rate 89 11/09/24 11:36 Respiratory Rate 18 11/09/24 11:36 Blood Pressure 126/71 11/09/24 11:36 Pulse Oximetry 99 11/09/24 11:36 Oxygen Delivery Room Air 11/09/24 11:36 Transfer Transfered to: [facility] Transportation: Other (Private vehicle) Transfer rationale: Patient requiring higher level care, abdominal pain, nausea, vomiting, diarrhea. Accepting physician: Dr. Roger MDM - Abdominal Pain MDM Narrative Medical decision making narrative: Patient has diffuse abdominal tenderness throughout, hypoactive bowel sounds, and diffuse tenderness of the right lower quadrant. Positive obturator sign. Cannot exclude any intra-abdominal processes such as appendicitis or small bowel obstruction. Given patient's symptoms, it is recommend the patient seek a higher level care and proceed immediately to the emergency department. Patient is agreeable to go to [facility] ER. Colored [facility] ER and spoke with Anatoly Elaine. he was aware of this patient and Dr. Roger accepted the patient for transfer. Patient advised to remain NPO and proceed immediately to the ER. Patient to go by private vehicle. Differential Diagnosis Differential diagnosis: Likely abdominal pain, acute appendicitis, gastroenteritis and small bowel obstruction Discharge Plan Discharge Clinical Impression: Nausea vomiting and diarrhea Abdominal pain Qualifiers: Abdominal location: unspecified location Qualified Code(s): R10.9 - Unspecified abdominal pain Patient Disposition: Acute Care Hospital Condition: Stable Patient Language: Yoruba Prescriptions: No Action buspirone 5 mg Tablet 10 mg PO BID bupropion HCl 150 mg Tablet Extended Release 24 Hr 150 mg PO QAM lisdexamfetamine [Vyvanse] 50 mg Capsule 50 mg PO DAILY mupirocin [Centany] 2 % ointment 1 applic topical BID 7 Days Qty: 22 0RF Follow-up/Referrals: Dilia,Ronald Trotter MD [Primary Care Provider] - Time of Disposition: 12:00
== END 2024-11-09 12:07 | disposition short-term general hospital (02) ==
PROVIDERS: PCP Internal Medicine
DX: R11.2 Nausea with vomiting, unspecified (principal); R19.7 Diarrhea, unspecified; R10.9 Unspecified abdominal pain; F41.9 Anxiety disorder, unspecified; F32.A Depression, unspecified
CPT/HCPCS: 99212; G0463

== ENCOUNTER 2025-01-04 12:30 | Emergency (ER) | payer OTHER, SELFPAY ==
--- NOTE | ~2025-01-04 | XR_ITS ---
EXAMINATION: XR hand RT min 3V, 01/04/2025 12:40 CDT HISTORY: injury to right hand smashed/pain metacarpals 3rd finger COMPARISON: No comparisons available. Findings: No acute fracture or malalignment. No significant degenerative changes. Soft tissues unremarkable. Impression: No acute fracture or malalignment. Reviewed, dictated and finalized at location A. Impression: No acute fracture or malalignment.
[2025-01-04 12:37] VITALS: BP 113/60; PULSE 66; RESP 18; TEMP 36.4; O2SAT 99
--- NOTE | 2025-01-04 12:41 | ED_ITS ---
HPI - Extremity Injury (Upper) General Chief Complaint: Extremity Injury, Upper Stated Complaint: RT Hand Injury Time Seen by Provider: 01/04/25 12:41 Source: patient, RN notes reviewed and old records reviewed Mode of arrival: ambulatory Limitations: no limitations History of Present Illness HPI narrative: 24 year old female who presents to [facility] care with complaints of smashing her right hand between potato bin and upper shelf at work today around 1145 when her and a co-worker were moving bin that held 140 potatoes. Patient is right hand dominant. Patient has swelling to the dorsal right hand and to proximal aspect of 3rd and 4th fingers of right hand. strong right radial pulse, nail beds have brisk capillary refill. Patient has taken some Tylenol for her discomfort, ice applied to hand on arrival to clinic MD complaint: injury to: right and hand Onset (ago): hour(s) (today at 1145) Other injuries: none Handedness: right Place: work Severity scale (1-10): 7 Treatments prior to arrival: other (Tylenol) Related Data Home Medications ?Medication ?Instructions ?Recorded ?Confirmed ?Last Taken ?Type bupropion HCl 150 mg 24 hr tablet, 150 mg PO QAM 08/1301/04/25 Unknown History extended release buspirone 5 mg tablet 10 mg PO BID 08/13/21 Unknown History lisdexamfetamine 50 mg capsule 50 mg PO DAILY 08/13/21 01/04/25 Unknown History (Vyvanse) Allergies Allergy/AdvReac Type Severity Reaction Status Date / Time No Known Allergies Allergy Mild Verified 01/04/25 12:32 Review of Systems Review of Systems: CONSTITUTIONAL: Denies fever, chills, or sweats. EYES: Denies visual changes, redness, or discharge. ENT: Denies rhinorrhea, congestion, sore throat, or otalgia. CARDIOVASCULAR: Denies chest pain, palpitations, or edema. RESPIRATORY: Denies cough or dyspnea. GASTROINTESTINAL: Denies abdominal pain, nausea, vomiting, or diarrhea. GENITOURINARY: Denies dysuria or hematuria. SKIN: Denies rash or itching. MUSCULOSKELETAL: Denies back pain, positive for pain to the anterior aspect of right hand and to proximal middle and 4th finger with some swelling noted, patient is able to move all finger of right hand, is right hand dominant. Noted swelling to the dorsal right hand with discomfort. especially with movement. NEUROLOGIC: Denies headache, numbness, or weakness. PSYCHIATRIC: Denies anxiety or depression. All systems reviewed & are unremarkable except as noted in HPI and below PMFSH Past Medical History Medical History (Updated 01/04/25 @ 13:40 by Meme Platt NP) ADHD (attention deficit hyperactivity disorder) Anxiety and depression Surgical History Surgical History No pertinent past surgical history Social History Social History (Updated 01/04/25 @ 15:07 by Meme Platt NP) Smoking status: Current every day smoker Tobacco type: e-cigarettes/vaping Alcohol intake: current Alcohol use details: social Substance use type: does not use Living arrangements: with family Gender identity (if verbalized by the patient): Female Comments At time of signature, agree with nursing past medical, surgical, social and family history. There is no relevant family history pertinent to the presenting complaint Exam Narrative: GENERAL: Well-appearing, well-nourished, and in no acute distress. HEAD: Normocephalic, atraumatic. EYES: PERRLA and EOMI. ENT: Nares clear, no rhinorrhea or epistaxis. Mucous membranes moist. NECK: Supple. no lymphadenopathy CHEST: Clear to auscultation. No respiratory distress. SAO2 99% on room air HEART: Regular rate and rhythm. No murmur heard. Normal peripheral pulses. ABDOMEN: Soft, nontender, nondistended, normal active bowel sounds. EXTREMITIES: Normal range of motion. No edema.Exception noted to the dorsal aspect of right hand and to proximal aspect of 3rd and 4th fingers with swelling and pain from injury when hand was smashed between bin of potatoes and upper shelf when her and co worker were moving bin of potatoes holding 140 potatoes.swelling present to right hand with increased pain with movement of 3rd and 4th finger, sensation, mobility and circulation is intact. SKIN: Warm, dry, no rash. NEURO: No focal deficits. Alert and oriented x3. Course Course Emergency Course: Patient is aware of diagnosis, understands and agrees to treatment plan.? An ticipatory guidance given.? Patient agrees to follow-up as directed and is aware of reasons to seek care at the emergency department. Portions of this record may have been created with voice recognition software Level of Care: Express Care Visit Vital Signs Vital signs: Vital Signs Temperature 36.4 C L 01/04/25 12:37 Pulse Rate 66 01/04/25 12:37 Respiratory Rate 18 01/04/25 12:37 Blood Pressure 113/60 01/04/25 12:37 Pulse Oximetry 99 01/04/25 12:37 Oxygen Delivery Room Air 01/04/25 12:37 Temperature 36.4 C L 01/04/25 12:37 Pulse Rate 66 01/04/25 12:37 Respiratory Rate 18 01/04/25 12:37 Blood Pressure 113/60 01/04/25 12:37 Pulse Oximetry 99 01/04/25 12:37 Oxygen Delivery Room Air 01/04/25 12:37 Reviewed MDM - Extremity Injury (Upper) Differential Diagnosis Differential diagnosis: Likely finger sprain, fracture of hand and other (finger fracture, contusion of right hand) Medical Records Attestation: I reviewed the patient's medical records. Imaging Data Attestation: I personally reviewed and interpreted this imaging study as follows: My impression: no acute fracture or mal-alignment of right hand Radiologist's impression: [address] [place] [id number] XRay Report Signed Patient: Cheo Rivero : 2000 MR#: [id number] Age: 24 Acct:[id number] Loc: [facility] ADM Date: 01/04/25Attending Dr: Ordering Physician: Meme Platt APRN Date of Service: 01/04/25 Procedure(s): XR hand RT min 3V Accession Number(s): [id number] cc: Dilia, Ronald Trotter MD; Meme Platt APRN~ EXAMINATION: XR hand RT min 3V, 01/04/2025 12:40 CDT HISTORY: injury to right hand smashed/pain metacarpals 3rd finger COMPARISON: No comparisons available. Findings: No acute fracture or malalignment. No significant degenerative changes. Soft tissues unremarkable. Impression: No acute fracture or malalignment. Reviewed, dictated and finalized at location A. Please be advised this is a medical document. It is intended for ahyx-lf-fvrq communication. It is written in medical language and may contain unfamiliar abbreviations or verbiage. Medical documents are intended to carry relevant information, facts as evident, and the clinical opinion of the practitioner at the time of the encounter. This report may have been done utilizing a voice recognition system. Attempts have been made to correct errors. However, there may be uncorrected grammatical, spelling, and recognition errors present. The file time of this note does not necessarily represent the time of service. Dictated By: Mitch Milan MD 01/04/25 1320 Signed By: <Electronically signed by Mitch Milan MD in OV> Critical Care Time Critical Care Time Critical Care Time: No Discharge Plan Discharge Clinical Impression: Contusion of hand, right Qualifiers: Encounter type: initial encounter Qualified Code(s): S60.221A - Contusion of right hand, initial encounter Patient Disposition: Home Condition: Stable Instructions: Antibiotic Form Additional Instructions: Elastic wrap as directed for comfort for the next 5-7 days Tylenol alternating with ibuprofen regularly for the next 2-3 days for the inflammation Follow-up with orthopedic surgeon if no improvement Follow-up with PCP if further problems or concerns Ice to the area 20-30 minutes 4-6 times a day Elevate above heart If your symptoms persist, change or worsen significantly before you can contact your personal physician then please, without delay, go to the emergency department for further evaluation. Follow-up with PCP in 7-10 days or sooner if needed Patient Language: Bahamian Prescriptions: No Action buspirone 5 mg Tablet 10 mg PO BID bupropion HCl 150 mg Tablet Extended Release 24 Hr 150 mg PO QAM lisdexamfetamine [Vyvanse] 50 mg Capsule 50 mg PO DAILY mupirocin [Centany] 2 % ointment 1 applic topical BID 7 Days Qty: 22 0RF Follow-up/Referrals: Dilia,Ronald Trotter MD [Primary Care Provider] Stand Alone Forms: Work/School Release IP Time of Disposition: 13:40 Quality Eagle Coma Scale Eyes: Open Verbal: Oriented and Alert Motor: Follows Commands Hardik Coma Total Score: 15
--- OUTSIDE RECORDS SUMMARY | 2025-01-04 13:51 | XMS_ITS | Clinical Summary ---
Author Organization [facility] Address [address] [place] [address] Care Team Providers Care Trauma Registrar Name Role Phone Mimi Palomo MD Primary Care Provider [phone] Source Comments [facility],non-owned Affiliates and Associated Physician Practices is amultiple site organization consisting of ambulatory clinics and hospital sitesin [place], [place], [place] and [place]. This disclosure is being madepursuant to the Care Everywhere program and may not contain all information available regarding this patient. Last updated 18.[facility] Allergies Active Allergy Reactions Criticality Noted [...] on head CT (Jun 18, 2017) at [facility] in [place], [place] during evaluation of head injury following [...] nodule Assessment & Plan (07/02/2017 11:11 AM MACHINE FIXER): Incidental, ~ 1 cm, left sided, solid/cystic [...] on file Legal Sex Female 5:41 AM MACHINE FIXER Gender Identity Not on file Sexual Orientation Not on file Last Filed Vital Signs Vital Sign Reading Time Taken Comments Blood Pressure 118/62 06/01/2019 3:54 PM MACHINE FIXER Pulse 91 02/09/2018 12:04 PM CDT per [...] PAP SMEAR 2022 CHLAMYDIA/GONORRHEA SCREENING 09/11/2023 09/10/2022 DEPRESSION SCREENING 04/28/2024 COVID-19 VACCINE ( season) 2024 03/02/2021, 07/03/2020 INFLUENZA VACCINE (#1) 2024 2, 02/27/2021, 02/09/2020, [...] patient's age to complete this topic Insurance [facility] Member Subscriber Plan / Payer (Ef fective for All Dates) Name:Orly Gutierres Relation to Subscriber:Self Name:ORLY GUTIERRES Payer ID:Not on file Group ID:Not on file Type:Medicaid [place] Address: [address] [id number] MEDICAID - OUT [facility] MEDICAID [employer] [facility] MEDICAID - OUT OF STATE MEDICAID - OUT OF [facility] MEDICAID - OUT OF [facility] [employer] MEDICAID - OUT OF STATE HU[employer]NA MEDICAID - OUT OF STATE [employer]NA MEDICAID - OUT OF STATE [employer] MEDICAID - OUT OF STATE [employer] MEDICAID - OUT OF STATE [employer] MEDICAID - OUT OF [facility] HU[employer]NA MEDICAID - OUT OF STATE HU[employer]NA HU[employer]NA MEDICAID - OUT OF STATE HU[employer]NA MEDICAID - OUT OF STATE [employer] MEDICAID - OUT OF STATE Care Teams Trauma Registrar Relationship Specialty Start Date End Date Mimi Palomo MD [address] [place] [address] PCP - General 08/20/17
--- OUTSIDE RECORDS SUMMARY | 2025-01-04 13:51 | XMS_ITS | Encounter Summary ---
Author Organization [facility] Address [address] [place] [address] Phone Care Team Providers Care Solution Maker Name Role Phone Meme Pinedo MD Primary Care Provider [phone] Bindu Del Rosario APRN, [facility] Unavailable [phone] Provider, None Primary Care Provider Unavailabl e Encounter Details Date Type Department Care Team (Late Contact Info) Description 09/26/2023 Behavioral Health Patient Survey [facility] [address] [place] [address] Whti Marie, [facility] [address] [place] [address] Social History Tobacco Use Types Packs/Day Years [...] (Late Contact Info) Description 04/14/2025 9:15 AM LOCATION ANALYST Office Visit [facility] Medical Group - Family [facility] [address] [place] [address] Ronald Dobbs MD [address] [address] documented as of this encounter Goals Goal Patient Goal Type Associated Problems Recent Progress Patient-Stated? Author to be happy Behavioral Health Improving( 9:14 AM CDT) Yes Whit Marie, UNDERWATER ROBOTICIST Note: Goal/Objective: Increase ability to handle stressors. Anticipated Time Frame for Goal Completion: 8 months Goal Reviewed with: patient today Readiness to change: Thinking about making a change Department associated with goal: [facility] Steps to achieve [...] documented as of this encounter Care Teams Solution Maker Relationship Specialty Start Date End Date Meme Pinedo MD PCP - General Family Medicine 09/18/22 10/13/23 Provider, None [place] PCP - General 09/07/24 Bindu Del Rosario, MAIL CALLER, CATTLE AND WHEAT FARMER [address] [place] [address] Nurse Practitioner Advanced Practice Nurse 05/02/22 documented as of this encounter
--- OUTSIDE RECORDS SUMMARY | 2025-01-04 13:51 | XMS_ITS | Encounter Summary ---
Author Organization [facility] Address [address] [place] [address] Phone Care Team Providers Care Insurance Claims Specialist Name Role Phone Meme Pinedo MD Primary Care Provider Bindu Del Rosario APRN, [facility] Unavailable [phone] Provider, None Primary Care Provider Unavailabl e Encounter Details Date Type Department Care Team (Late Contact Info) Description 07/18/2023 Behavioral Health [facility] [address] [place] [address] Whit Marie, [facility] [address] [place] [address] Social History Tobacco Use Types Packs/Day Years [...] (Late Contact Info) Description 04/14/2025 9:15 AM NUCLEAR CARDIOLOGY TECHNOLOGIST Office Visit [facility] Medical Group - Family [facility] [address] [place] [address] Ronald Dobbs MD [address] [address] documented as of this encounter Goals Goal Patient Goal Type Associated Problems Recent Progress Patient-Stated? Author to be happy Behavioral Health Improving( 9:14 AM CDT) Yes Whit Marie, PAINTER MIRROR Note: Goal/Objective: Increase ability to handle stressors. Anticipated Time Frame for Goal Completion: 8 months Goal Reviewed with: patient today Readiness to change: Thinking about making a change Department associated with goal: [facility] Steps to [...] documented as of this encounter Care Teams Insurance Claims Specialist Relationship Specialty Start Date End Date Meme Pinedo MD PCP - General Family Medicine 09/18/22 10/13/23 Provider, None [place] PCP - General 09/07/24 Bindu Del Rosario, AIRCRAFT STRUCTURE MECHANIC, NON DESTRUCTIVE EVALUATION MANAGER [address] [place] [address] Nurse Practitioner Advanced Practice Nurse 05/02/22 documented as of this encounter
--- OUTSIDE RECORDS SUMMARY | 2025-01-04 13:51 | XMS_ITS | Encounter Summary ---
Author Organization [facility] Address [address] [place] [address] Phone Care Team Providers Care Hammer Smith Name Role Phone Meme Pinedo MD Primary Care Provider [phone] Bindu Del Rosario APRN, [facility] Unavailable [phone] Provider, None Primary Care Provider Unavailabl e Encounter Details Date Type Department Care Team (Late Contact Info) Description 08/21/2023 Behavioral Health Patient Survey [facility] [address] [place] [address] Whit Marie, [facility] [address] [place] [address] Social History Tobacco Use Types Packs/Day Years [...] (Late Contact Info) Description 04/14/2025 9:15 AM PECAN GATHERER Office Visit [facility] Medical Group - Family [facility] [address] [place] [address] Ronald Dobbs MD [address] [address] documented as of this encounter Goals Goal Patient Goal Type Associated Problems Recent Progress Patient-Stated? Author to be happy Behavioral Health Improving( 9:14 AM CDT) Yes Whit Marie, NATURAL SCIENCE MANAGER Note: Goal/Objective: Increase ability to handle stressors. Anticipated Time Frame for Goal Completion: 8 months Goal Reviewed with: patient today Readiness to change: Thinking about making a change Department associated with goal: [facility] Steps to achieve [...] documented as of this encounter Care Teams Hammer Smith Relationship Specialty Start Date End Date Meme Pinedo MD PCP - General Family Medicine 09/18/22 10/13/23 Provider, None [place] PCP - General 09/07/24 Bindu Del Rosario, HUMAN RESOURCES PROFESSIONAL, PAPER BALING MACHINE OPERATOR [address] [place] [address] Nurse Practitioner Advanced Practice Nurse 05/02/22 documented as of this encounter
--- OUTSIDE RECORDS SUMMARY | 2025-01-04 13:51 | XMS_ITS | Clinical Summary ---
Author Organization [facility] Medical Office Building [address] Address [address] [place] [address] Care Team Providers Care Marketing Communication Manager Name Role Phone Ronald Dobbs MD Primary Care Provider [phone] Allergies Active Allergy Reactions Criticality Noted Date [...] as needed for muscle spasms 30 tablet 04/06/202 4 Active naproxen (NAPROSYN) 500 mg tablet Take 1 tablet (500 mg total) by mouth 2 (two) times a day with meals 30 tablet 4 Active Additional Information Patient not taking.Reported on 06/21/2024 ARIPiprazole (ABILIFY) 5 mg tablet daily 4 Active predniSONE (DELTASONE) 20 mg tablet Take 2 tablets (40 mg) by mouth daily 6 tablet 5 Active dicyclomine (BENTYL) 20 mg tablet Take 1 tablet (20 mg total) by mouth every 6 (six) hours as needed (abdominal cramping) 12 tablet 5 Active ondansetron (ZOFRAN) 4 mg tablet Take 1 tablet (4 mg total) by mouth every 8 (eight) hours as needed for nausea or vomiting 10 tablet 5 Active loperamide (IMODIUM) 2 mg capsule Take 1 capsule (2 mg total) by mouth 4 (four) times a day as needed for diarrhea 12 capsule 5 Active Active Problems No known active problems Encounters Date Type Department Care Team Description 12/29/2024 Telephone [facility] [address] [address] Darlene Forman NP 11/09/2024 1:24 PM CDT - 11/09/2024 4:05 PM CDT Emergency [facility] Emergency Department [address] [place] [address] Abdominal pain, vomiting, and diarrhea (Primary Dx) Discharge Disposition: Discharge to home or self care from Last 3 Months Medical History Medical [...] making you feel afraid or unsafe? 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 Gender Identity Not on file Sexual Orientation Not on file Obstetrics History Last Filed Vital Signs Vital Sign Reading Time Taken Comments Blood Pressure 102/57 11/09/2024 3:35 PM CDT Pulse 51 11/09/2024 3:35 PM CDT Temperature 36.7 C (98.1 F) 11/09/2024 12:25 PM CDT Respiratory Rate 16 11/09/2024 12:25 PM CDT Oxygen Saturation 100% 11/09/2024 3:35 PM CDT Inhaled Oxygen Concentration - - Weight 73.5 kg (162 lb) 11/09/2024 12:25 PM CDT Height 160 cm (5' 3) 11/09/2024 12:25 PM CDT Body Mass Index 28.7 11/09/2024 12:25 PM CDT Plan of Treatment Health Maintenance Due Date Last Done Comments Cervical Cancer Screening 2001 Chlamydia and Gonorrhea (GC/ CT) Screening 2001 Depression Screening 2001 Hepatitis C Screening 2001 Pneumococcal vaccine <65 (1 of 1 - PPSV23, PCV20, or PCV21) 2007 11/08/2002, 2001 Regular Well Visit/Exam 18-64 2019 Covid-19 Vaccine (3 - 2024-2 6 season) 2024 03/02/2021, 07/03/2020 Influenza Vaccine (#1) 2024 2, 02/27/2021, 02/09/2020, Additional history exists DTaP/Tdap/Td Vaccine (8 - Td or Tdap) 10/07/2034 10/07/2024, 12/31/2012, 12/12/2006, Additional history exists Hepatitis B Screening Completed 11/08/2002 , 08/24/2002, 2001, Additional history exists Varicella Vaccines Completed 12/12/2006, 08/24/2002 HPV Vaccines Completed 09/09/2017, 12/27, 01/12/2016 Meningococcal B Vaccine Completed 03/01/2022, 02/08 Procedures Procedure Name Priority Date/Time Associated Diagnosis Comments URINALYSIS, MICROSCOPIC ONLY STAT 11/09/2024 12:57 PM CDT URINALYSIS AND REFLEX TO MICROSCOPIC AND CULTURE STAT 11/09/2024 12:57 PM CDT POCT HCG, URINE Routine 11/09/2024 12:55 PM CDT LIPASE Add-On 11/09/2024 12:36 PM CDT EGFR STAT 11/09/2024 12:36 PM CDT DIFFERENTIAL AUTO STAT 11/09/2024 12: 36 PM CDT COMPREHENSIVE METABOLIC PANEL STAT 11/09/2024 12:36 PM CDT CBC WITH AUTO DIFFERENTIAL STAT 11/09/2024 12:36 PM CDT from Last 3 Months Results * (ABNORMAL) Urinalysis reflex to microscopic and culture Urine (11/09/2024 12:57 PM CDT) Color, ur Yellow Yellow Clarity, ur Clear Clear [facility] ([place]) Specific gravity, ur 1.027 1.003 - 1.030 [facility] ([place]) pH, urine 5.5 [facility] ([place]) Comment: Interpretive Data U rine pH is affected by diet, medications, systemic acid-base disturbances, and renal tubular function. pH may affect urinary stone formation. For example, urine pH below 6.0 may help reduce the tendency for calcium phosphate stones and pH greater than 6.0 may reduce the tendency for uric acid stone formation. Source: [facility] [employer] Current Interpretive Data was last revised on 2017 Protein, ur ql Negative Negative [facility] ([place]) Glucose, ur ql Negative Negative [facility] ([place]) Ketones, ur Negative Negative [facility] ([place]) Bilirubin, ur Negative Negative [facility] ([place]) Blood, ur 1+(A) Negative [facility] ([place]) Urobilinogen, ur <2.0 <2.0 mg/dL [facility] ([place]) Nitrite, ur Negative Negative [facility] ([place]) Leukocyte esterase, ur 1+(A) Negative [facility] ([place]) UA reflex comment Reflex to microscopic UA will be performed. [facility] ([place] Urine 11/09/2024 12:5 7 PM CDT 11/09/2024 1:05 PM CDT Yary Roger MD LAB MICROBIOLOGY - GENERA L ORDERABLES Final Result Performing Organization Address [facility] Co de Phone Number [facility] 1 [facility] [place] [address] * (ABNORMAL) Urinalysis, microscopic only (11/09/2024 12:57 PM CDT) WBC, ur 0-5 0 - 5 /HPF RBC, ur 0-2 0 - 2 /HPF [facility] ([place]) Epithelial cells, squamous, ur 6-10(A) 0 - 5 /HPF [facility] ([place]) Bacteria, ur Trace(A) [facility] ([place] Mucous, ur Present(A) [facility] ([place]) Culture Reflex Comment Reflex conditions for urine culture (WBC >10) not met. [facility] ([place] Urine 11/09/2024 12:5 7 PM CDT 11/09/2024 1:09 PM CDT Yary Roger MD LAB URINE ORDERABLES Maribel l Result Performing Organization Address City/[facility] Co de Phone Number [facility] 1 [facility] [place] [address] * POCT hCG, urine (11/09/2024 12:55 PM CDT) HCG, ur, POC Negative Negative Lot Number [id number] QC Backgroud Clear Acceptable QC Control Line Acceptable Urine 11/09/2024 12:5 5 PM CDT Yary Roger MD POINT OF CARE TEST ORDERA BLES Final Result * eGFR (11/09/2024 12:36 PM CDT) eGFR >90 >=60 mL/min/1. 73 m2 Comment: Interpretive Data Reference Interval Normal >/= 90 mL/min/1.73m2 Mildly decreased* 60 - 89 mL/min/1.73m2 Mildly to moderately decreased 45 - 59 mL/min/1.73m2 Moderately to severely decreased 30 - 44 mL/min/1.73m2 Severely decreased 15 - 29 mL/min/1.73m2 Kidney Failure < 15 mL/min/1.73m2 *Relative to young adult level Estimated glomerular filtration rate is determined by the 2020 CKD-EPI equation recommended by the National Kidney Foundation (A Unifying Approach to GFR Estimation: Recommendations of the NKF-ASK Task Force on Reassessing the Inclusion of Race in Diagnosing Kidney Disease, JASN 2020). The CKD-EPI equation should not be used for patients with unstable renal function and has not been validated in children and those over 70. Current interpretive data was last reviewed 2021. Blood 11/09/2024 12:3 6 PM CDT 11/09/2024 12:39 PM CDT us Yary Roger MD LAB BLOOD ORDERABLES Maribel franco Result [facility] [address] [facility] Department [place] [address] * Differential, auto (11/09/2024 12:36 PM CDT) Neutrophil abs 6.50 1.50 - 6.50 K/cumm Imm gran abs 0.03 0.00 - 0.10 K/cumm [facility] ([place]) Lymphocyte abs 2.10 0.80 - 3.30 K/cumm [facility] ([place]) Monocyte abs 0.58 0.20 - 0.80 K/cumm [facility] ([place]) Eosinophil abs 0.49 0.00 - 0.50 K/cumm [facility] ([place]) Basophil abs 0.01 0.00 - 0.10 K/cumm [facility] ([place]) Neutrophil pct 67.0 % [facility] ([place]) Comment: Interpretive Data Percent cell count reference ranges are not reported, since discordance with absolute values may lead to misinterpretation of CBC data. Current Interpretive Data was last revised on 2017. Imm gran pct 0.3 % [facility] ([place]) Comment: Interpretive Data Percent cell count reference ranges are not reported, since discordance with absolute values may lead to misinterpretation of CBC data. Current Interpretive Data was last revised on 2017. Lymphocyte pct 21.6 % [facility] ([place]) Comment: Interpretive Data Percent cell count reference ranges are not reported, since discordance with absolute values may lead to misinterpretation of CBC data. Current Interpretive Data was last revised on 2017. Monocyte pct 6.0 % [facility] ([place]) Comment: Interpretive Data Percent cell count reference ranges are not reported, since discordance with absolute values may lead to misinterpretation of CBC data. Current Interpretive Data was last revised on 2017. Eosinophil pct 5.0 % [facility] ([place]) Comment: Interpretive Data Percent cell count reference ranges are not reported, since discordance with absolute values may lead to misinterpretation of CBC data. Current Interpretive Data was last revised on 2017. Basophil pct 0.1 % [facility] ([place]) Comment: Interpretive Data Percent cell count reference ranges are not reported, since discordance with absolute values may lead to misinterpretation of CBC data. Current Interpretive Data was last revised on 2017. Blood 11/09/2024 12:3 6 PM CDT 11/09/2024 12:39 PM CDT us Yary Roger MD LAB BLOOD ORDERABLES Maribel franco Result [facility] ([place]) [address] [facility] Department [place] [address] * (ABNORMAL) CBC with auto differential (11/09/2024 12:36 PM CDT) WBC 9.71 3.80 - 9.90 K/cumm Hgb 15.7(H) 11.9 - 15.5 g/dL [facility] ([place]) Hct 45.4 35.6 - 45.5 % [facility] ([place]) Plt 299 150 - 400 K/cumm [facility] ([place]) MPV 9.2 9.1 - 12.3 fL [facility] ([place]) RBC 5.19 3.90 - 5.20 M/cumm [facility] ([place]) MCV 87.5 81.3 - 96.4 fL [facility] ([place]) MCH 30.3 27.1 - 33.3 pg [facility] ([place]) MCHC 34.6 32.3 - 35.7 g/dL [facility] ([place]) RDW CV 12.3 11.1 - 14.9 % [facility] ([place]) RDW SD 39.6 35.7 - 48.1 fL [facility] ([place]) NRBC abs 0.00 0.00 - 0.01 K/cumm [facility] ([place]) Blood Venous blood specimen / Unknown 11/09/2024 12:36 PM CDT 11/09/2024 12:39 PM CDT us Yary Roger MD LAB BLOOD ORDERABLES Maribel l Result [facility] ([place]) [address] [facility] [employer] [place] [address] * Lipase (11/09/2024 12:36 PM CDT) Lipase 30 10 - 99 Units/L [facility] ([place]) Blood 11/09/2024 12:3 6 PM CDT 11/09/2024 2:17 PM CDT us Harley PRICE LAB BLOOD ORDERABLES Final Result [facility] ([place] [address] [facility] [place] [address] * (ABNORMAL) Comprehensive metabolic panel (11/09/2024 12:36 PM CDT) Sodium 138 135 - 145 mmol/L [facility] ([place]) Potassium, pl 4.2 3.3 - 4.9 mmol/L [facility] ([place]) Chloride 106 97 - 110 mmol/L [facility]) CO2 21(L) 22 - 32 mmol/L [facility] ([place]) Anion gap 11 2 - 15 mmol/L [facility] ([place]) BUN 11 6 - 25 mg/dL [facility] ([place]) Creatinine 0.72 0.60 - 1.10 mg/dL [facility] ([place]) Glucose 88 70 - 199 mg/dL [facility] ([place]) Comment: Interpretive Data Fasting glucose >/= 126 mg/dl is diagnostic for diabetes. Fasting is defined as no caloric intake for at least 8 hours. Fasting glucose between 100 mg/dl to 125 mg/dl is diagnostic of prediabetes. In a patient with classic symptoms of hyperglycemia or hyperglycemic crisis, a random glucose >/= 200 mg/dl is diagnostic for diabetes. In the absence of unequivocal hyperglycemia, results should be confirmed by repeat testing. The classification and Diagnosis of Diabetes Diabetes Care 2021; 46: S19-S40. Current interpretive data was last revised 2022. Calcium 9.1 8.5 - 10.3 mg/dL [facility] ([place]) Bilirubin, total 0.5 0.1 - 1.2 mg/dL [facility] ([place]) Protein, pl 7.3 6.5 - 8.5 g/dL [facility] ([place]) Albumin 4.2 3.5 - 5.0 g/dL [facility] ([place]) Alk phos 55 40 - 130 Units/L [facility] ([place]) ALT 19 7 - 45 Units/L [facility] ([place]) AST 20 10 - 45 Units/L [facility] ([place]) Comment:HEMOLYZED; Blood Venous blood specimen / Unknown 11/09/2024 12:36 PM CDT 11/09/2024 12:39 PM CDT Yary Roger MD LAB BLOOD ORDERABLES Maribel franco Result [facility] ([place]) [address] [facility] Department [place] [address] from Last 3 Months Insurance [facility] [id number] Care Teams Marketing Communication Manager Relationship Specialty Start Date End Date Ronald Dobbs MD 2 [facility] [id number] [address] PCP - General Family Medicine 11/09/24
--- OUTSIDE RECORDS SUMMARY | 2025-01-04 13:51 | XMS_ITS | Encounter Summary ---
Author Organization [facility] Address [address] [place] [address] Phone Care Team Providers Care Local Tanker Truck Driver Name Role Phone Meme Pinedo MD Primary Care Provider Bindu Del Rosario APRN, SUPERVISOR ENGINE ASSEMBLY Unavailable [phone] Provider, None Primary Care Provider Unavailabl e Encounter Details Date Type Department Care Team (Late st Contact Info) Description 02/27/2023 Behavioral Health Patient Survey [facility] [address] [place] [address] Whit Marie, [facility] [address] [place] [address] Social History Tobacco Use Types Packs/Day Years [...] Contact Info) Description 04/14/2025 9:15 AM MANAGER OF FINANCIAL REPORTING Office Visit [facility] - Family [facility] [address] [place] [address] Ronald Dobbs MD [id number] [address] documented as of this encounter Goals Goal Patient Goal Type Associated Problems Recent Progress Patient-Stated? Author to be happy Behavioral Health Improving( 9:14 AM CDT) Yes Whit Marie, FACING SLITTER Note: Goal/Objective: Increase ability to handle stressors. Anticipated Time Frame for Goal Completion: 8 months Goal Reviewed with: patient today Readiness to change: Thinking about making a change Department associated with goal: [facility] Steps to achieve [...] documented as of this encounter Care Teams Local Tanker Truck Driver Relationship Specialty Start Date End Date Meme Pinedo MD PCP - General Family Medicine 09/18/22 10/13/23 Provider, None [place] PCP - General 09/07/24 Bindu Del Rosario, HARDENING MACHINE OPERATOR, SUPERVISOR ENGINE ASSEMBLY [address] [place] [address] Nurse Practitioner Advanced Practice Nurse 05/02/22 documented as of this encounter
--- OUTSIDE RECORDS SUMMARY | 2025-01-04 13:51 | XMS_ITS | Clinical Summary ---
Author Organization [facility] Address [address] [place] [address] Phone Care Team Providers Care C Developer Name Role Phone CiriloPeter urbanalf Ramirez APRN, LOCATOR SPECIALIST Unavailable [phone] Provider, None Primary Care Provider Unavailabl e [...] Type Department Care Team Description 10/11/2024 Telephone [facility] [address] [place] [address] Ronald Dobbs MD 10/07/2024 9:30 AM CDT Office Visit [facility] [address] [place] [address] Ronald Dobbs MD Left hip pain (Primary Dx); Attention deficit hyperactivity disorder (ADHD), unspecified ADHD type; Encounter for immunization; Encounter for long-term (current) use of medications Discharge Disposition: Discharged to home or Selfcare 10/07/2024 Travel from Last 3 Months Immunizations Immunization [...] Abuse Father Breezy ADD / ADHD Mother Mirna Bipolar Disorder Mother Mirna Relation Name Status Comments Brother 1 Cory Alive Brother 2 Joaquin Alive Father Breezy Alive Mother Mirna Alive Social History Tobacco Use Types Packs/Day [...] st Contact Info) Description 04/14/2025 9:15 AM DIETICIAN Office Visit [facility] - Family Medicine [facility] [address] [place] [address] Ronald Dobbs MD [address] [address] Health Maintenance Due Date Last Done Comments Hepatitis C Virus (HCV) Screening 2001 Pap Smear 2022 Influenza Immunization (#1) 12/27/202401/26, 02/27/2021, 02/09/2020, Additional history exists SARS-COV-2 Immunization ( season) 2024 03/02/2021, 07/03/2020 DTaP/Tdap/Td Immunization (8 - Td or Tdap) [...] Improving( 9:14 AM CDT) Yes Whit Marie, VP & GENERAL COUNSEL Note: Goal/Objective: Increase ability to handle stressors. Anticipated Time Frame for Goal Completion: 8 months Goal Reviewed with: patient today Readiness to change: Thinking about making a change Department associated with goal: [facility] Steps [...] Result SCAN from Last 3 Months Insurance [facility] Care Teams C Developer Relationship Specialty Start Date End Date Provider, None [place] PCP - General 09/07/24 Bindu Del Rosario, PAINT ROLLER COVERS SUPERVISOR, LOCATOR SPECIALIST [address] [place] [address] Nurse Practitioner Advanced Practice Nurse 05/02/22
--- OUTSIDE RECORDS SUMMARY | 2025-01-04 13:51 | XMS_ITS | Encounter Summary ---
Author Organization [facility] Address [address] [place] [address] Care Team Providers Care Fountain Pen Nibs Inspector Name Role Phone Zeinab Tian MD Primary Care Provider Mimi Palomo MD Primary Care Provider [phone] Reason for Visit * Reason Onset Date Comments MEDICATION REFILL 06/24/2017 Encounter Details Date Type Department Care Team (Late st Contact Info) Description 06/24/[address] [facility] - [facility] [place] [address] Nae Arteaga MD [address] [place] [id number] MEDICATION REFILL Social History Tobacco Use Types Packs/Day Years Used Date Smoking Tobacco: Never Alcohol Use Standard Drinks/Week Comments No 0 (1 standard drink = 0.6 oz pur e alcohol) Comments No Sex and Gender Information Value Date Recorded Sex Assigned at Not on file Legal Sex Female 5:41 AM CONVEYOR SYSTEM OPERATOR Gender Identity Not on file Sexual [...] Saima Tang RN - 06/25/2017 8:12 AM CONVEYOR SYSTEM OPERATOR Received refill request for protonix, last seen in November 2016 at the time of endoscopy. Will forward to Dr Arteaga. EYOR SYSTEM OPERATOR * Telephone Encounter - Caryl Marte - 06/24/2017 3:25 PM CST Received refill request from [facility] EYOR SYSTEM OPERATOR documented in this encounter Plan of Treatment Not on file documented as of this encounter Visit Diagnoses Diagnosis Eosinophilic esophagitis documented in this encounter Care Teams Fountain Pen Nibs Inspector Relationship Specialty Start Date End Date Zeinab Tian MD [address] [id number] PCP - General Pediatrics 01/26/13 08/19/17 Mimi Palomo MD [address] [place] [address] PCP - General 08/20/17 documented as of this encounter
== END 2025-01-04 13:41 | disposition home or self-care (01) ==
PROVIDERS: Emergency Provider Registered Nurse; PCP Internal Medicine
DX: S60.221A Contusion of right hand, initial encounter (principal); X58.XXXA Exposure to other specified factors, initial encounter; Y99.0 Civilian activity done for income or pay; F90.9 Attention-deficit hyperactivity disorder, unspecified type; F41.9 Anxiety disorder, unspecified; F32.A Depression, unspecified; F17.290 Nicotine dependence, other tobacco product, uncomplicated
CPT/HCPCS: 73130; 99213; G0463

== ENCOUNTER 2025-02-03 15:09 | Emergency (ER) | payer OTHER, SELFPAY ==
--- NOTE | 2025-02-03 15:11 | ED.NAVMDI ---
HPI - Nausea/Vomiting/Diarrhea General Chief complaint: Nausea/Vomiting/Diarrhea Stated complaint: Vomiting Time Seen by Provider: 02/03/25 15:10 Source: patient Mode of arrival: ambulatory Limitations: no limitations History of Present Illness HPI Narrative: Neela is a 24 year old female patient presenting to the clinic today with c/o nasal congestion and itchy eyes x1 week. Nausea, vomiting, and sharp mid abdomen discomfort 1.5 hour ago. She reports she vomiting x1.5 hour ago and had a normal BM 1 hour ago. No urinary symptoms. LMP ended 3 days ago. Rates pain 3/10. Nausea has improved. Feels as though the nasal drainage is causing her to feel nauseous. Patient reports that she had to the work due to the nausea and vomiting and they wanted her to be evaluated. Denies GERD symptoms. Related Data Home Medications ?Medication ?Instructions ?Recorded ?Confirmed ?Last Taken ?Type bupropion HCl 150 mg 24 hr tablet, 150 mg PO QAM 08/13/21 01/04/25 Unknown History extended release buspirone 5 mg tablet 10 mg PO BID 08/13/21 01/04/25 Unknown History lisdexamfetamine 50 mg capsule 50 mg PO DAILY 08/13/21 01/04/25 Unknown History (Vyvanse) Allergies Allergy/AdvReac Type Severity Reaction Status Date / Time No Known Allergies Allergy Mild Verified 02/03/25 15:23 Review of Systems Review of Systems: Pertinent positives per HPI. Patient denies any fever, chills, rash, headache, visual changes, dizziness, cough, sore throat, shortness of breath, chest pain, palpitations, diarrhea, constipation, or any urinary issues. [facility] Past Medical History Medical History ADHD (attention deficit hyperactivity disorder) Anxiety and depression Surgical History Surgical History No pertinent past surgical history Social History Social History Smoking status: Current every day smoker Tobacco type: e-cigarettes/vaping Alcohol intake: current Alcohol use details: social Substance use type: does not use Living arrangements: with family Gender identity (if verbalized by the patient): Female Comments At the time of my signature, I reviewed and agree with the nursing past medical, surgical, social, and family history. There is no relevant family history pertinent to the patient complaint. Exam Narrative: General: Well-developed, well nourished, in no apparent distress Head: Normocephalic, atraumatic Eyes: Pupils equally round and reactive to light bilaterally, EOM intact, sclera and conjunctive clear, no discharge, lids normal Ears: TMs intact and clear, ear canals clear, no drainage, grossly hearing normal. Nose: Nares patent, clear nasal discharge, moderate inflammation, no sinus tenderness. Mouth: Oropharynx without lesions or masses, good dentition, MMM. Postnasal drip Neck: Supple, trachea midline, no enlargement of anterior or posterior cervical nodes, no thyroid masses or goiter palpable. Cardio: Regular rate and rhythm, s1 and s2 normal, no murmur appreciated. Resp: Clear to auscultation bilaterally anteriorly and posteriorly, no rhonchi, rales, wheezing or rubs Abdomen: Soft, pliable, bowel sounds present in all quadrants, mild generalized tender to palpation, no organomegly, no CVAT tenderness. Course Course Emergency Course: Portions of this record may have been created with voice recognition software. Level of Care: Express Care Visit Vital Signs Vital signs: Vital Signs Temperature 36.7 C 02/03/25 15:15 Pulse Rate 91 02/03/25 15:15 Respiratory Rate 18 02/03/25 15:15 Blood Pressure 125/78 02/03/25 15:15 Pulse Oximetry 100 02/03/25 15:15 Oxygen Delivery Room Air 02/03/25 15:15 Temperature 36.7 C 02/03/25 15:15 Pulse Rate 91 02/03/25 15:15 Respiratory Rate 18 02/03/25 15:15 Blood Pressure 125/78 02/03/25 15:15 Pulse Oximetry 100 02/03/25 15:15 Oxygen Delivery Room Air 02/03/25 15:15 Vital signs reviewed MDM - Nausea/Vomiting/Diarrhea MDM Narrative Medical decision making narrative: At the time of visit patient is resting comfortably on the exam table. Patient appears to be nontoxic. C/o nasal congestion and itchy eyes x1 week. Nausea, vomiting, and sharp mid abdomen discomfort 1.5 hour ago. She reports she vomiting x1.5 hour ago and had a normal BM 1 hour ago. No urinary symptoms. LMP ended 3 days ago. Feels as though the nasal drainage has caused her to be nauseous insect. Rates pain 3/10. Nausea has improved. Denies GERD symptoms. No known fever, chills, or body aches. Patient reports that she had to the work due to the nausea and vomiting and they wanted her to be evaluated. COVID and influenza testing was ordered. Labs: COVID and influenza testing was performed were negative in the clinic today. Plan: I suspect patient has allergic rhinitis with postnasal drip, generalized abdominal discomfort, and nausea and vomiting. Prescription for Zofran was sent to the pharmacy. Recommend going to the emergency room if her symptoms worsen. Supportive measures were discussed with the patient and they voiced understanding discharge instructions and agrees to treatment plan. Return precautions reviewed Differential Diagnosis Differential diagnosis: Likely food poisoning, gastroenteritis, drug-induced nausea and vomiting and dehydration Lab Data Labs: Lab Results 02/03/25 Range/Units 15:37 POC Influenza A Ag Negative (Negative) POC Influenza B Ag Negative (Negative) POC SARS CoV-2 Ag Negative (Negative) Discharge Plan Discharge Clinical Impression: Allergic rhinitis with postnasal drip, Acute nausea with nonbilious vomiting, Abdominal discomfort, generalized Patient Disposition: Home Condition: Stable Instructions: Antibiotic Form, Acute Nausea and Vomiting (ED), Abdominal Pain (ED), Postnasal Drip (DC) Additional Instructions: COVID and influenza testing was negative in the clinic today. Go home and rest Increase fluids and stay well hydrated May take Sudafed for nasal congestion May take Tylenol or motrin as directed on bottle for pain/fever May use Flonase 1 spray in each nare daily May take OTC antihistamines such as Zyrtec or Claritin daily as directed on bottle May apply Vicks vapor rub to chest to open sinuses Sinus rinses for congestion Cepacol spray, cough drops, throat lozenges, warm tea with honey/lemon, gargle salt water to soothe throat BRAT diet for diarrhea Clear liquids x 24 hours then advance as tolerated for nausea/vomiting Go to the ED if you develop a worsening in your condition- high fever not controlled by Tylenol or Motrin, dehydration, weakness, lethargy, shortness of breath, or chest pain. Follow up with your PCP in 3-5 days if symptoms persist. Patient Language: [place] Island[place] Prescriptions: New ondansetron 8 mg tablet,disintegrating 8 mg PO Q8H PRN (Reason: nausea and vomiting) 3 Days Qty: 10 0RF No Action buspirone 5 mg Tablet 10 mg PO BID bupropion HCl 150 mg Tablet Extended Release 24 Hr 150 mg PO QAM lisdexamfetamine [Vyvanse] 50 mg Capsule 50 mg PO DAILY mupirocin [Centany] 2 % ointment 1 applic topical BID 7 Days Qty: 22 0RF Follow-up/Referrals: Dilia,Ronald Trotter MD [Primary Care Provider] Stand Alone Forms: Work/School Release IP Time of Disposition: 15:39 Quality NIHSS Nursing Documentation ED NIHSS nursing documentation: reviewed/agree
[2025-02-03 15:15] VITALS: BP 125/78; PULSE 91; RESP 18; TEMP 36.7; O2SAT 100
[2025-02-03 15:40] LABS: EDCOVIDSCREEN Negative (Negative); EDINFLUASCREEN Negative (Negative); EDINFLUBSCREEN Negative (Negative)
== END 2025-02-03 15:45 | disposition home or self-care (01) ==
PROVIDERS: Emergency Provider Nurse Practitioner Family; PCP Internal Medicine
DX: J30.9 Allergic rhinitis, unspecified (principal); R09.82 Postnasal drip; R11.2 Nausea with vomiting, unspecified; R10.84 Generalized abdominal pain; Z20.822 Contact with and (suspected) exposure to COVID-19; F17.290 Nicotine dependence, other tobacco product, uncomplicated; F90.9 Attention-deficit hyperactivity disorder, unspecified type; F41.9 Anxiety disorder, unspecified; F32.A Depression, unspecified
CPT/HCPCS: 87426; 87804; 99213; G0463